=== PATIENT | female | born 1970 | race Caucasian/White ===

== ENCOUNTER 2016-06-30 17:17 | Emergency (ER) | payer BC ==
[~2016-06-30] VITALS: Ht 165.1 cm; Wt 109.4 kg
[~2016-06-30 17:17] MED LIST: B-COTAB53; LISI-787 PO; METR0.754; MULT-506 PO; NAPR220T PO; NPR375 PO; OXYC-643 PO; TRAZ50TA35 PO
[2016-06-30 17:20] VITALS: TEMP 36.9; Ht 165.1 cm; Wt 109.4 kg
[2016-06-30] MEDS ORDERED: SODIUM CHLORIDE 0.9% 1000ML 1,000 ML IV STA (17:33)
[2016-06-30] MEDS ORDERED: ONDANSETRON INJ 2 MG/ML 2 ML VIAL IV STA (17:33)
--- NOTE | 2016-06-30 17:41 | EMERGENCY ROOM VISIT NOTE ---
History Report prepared by Demarcus: Philip Valdes Under the Supervision of: Dr. Kenny Santana D.O. First contact with patient: 17:24 Chief Complaint: ABDOMINAL PAIN Stated Complaint: UPPER ABDOMINAL PAIN,SHOULDER PAIN History of Present Illness The patient is a 46 year old female who presents to the Emergency Room with complaints of intermittent abdominal pain beginning around 2 years ago. She notes she gets episodes of sharp abdominal pain with nausea, but without diarrhea or vomiting, though she notes she feels she could vomit. The intermittent pain has been worse of the past week. She locates her pain in her upper abdomen, and indicates that it sometimes radiates to her back and chest. The patient denies worsening of her pain with lying flat, and occasionally has shortness of breath with her symptoms. Today she felt hot, but is unsure if she had a fever. The patient sometimes takes acetaminophen to manage her symptoms, and took an Excedrin earlier today for migraine pain. She last ate 4 hours ago and had ham. The patient reports she still has her gallbladder, but notes that members of her family have had gallbladder issues. She notes having a hysterectomy, and a history of hypertension for which she takes Lisinopril, and a history of reflux for which she does not take regular medicine. 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 Source of History: patient Onset: 2 years ago Position: abdomen (upper) Quality: sharp Timing: intermittent Associated Symptoms: + SOB, + nausea, No diarrhea, No vomiting Review of Systems See HPI for pertinent positives & negatives. A total of 10 systems reviewed and were otherwise negative. Past Medical & Surgical Medical Problems: (1) History of gastroesophageal reflux (GERD) (2) History of hypertension Surgical Problems: (1) History of hysterectomy Family History Gallbladder disease Social History Smoking Status: Never Smoker Marital Status: Housing Status: lives with family Current/Historical Medications Scheduled B-Complex W/ Folic Acid (B Complex), 1 TAB BID Lisinopril/Hctz (Zestoretic 20MG/12.5MG), 1 TAB PO QAM Multivitamin (Multivitamin), 1 TAB PO BID Pantoprazole (Protonix), 40 MG PO DAILY Ranitidine Hcl (Zantac), 150 MG PO BID Scheduled PRN Drrioxy-Xvjtnwhzzwrem-Qsuvpnqe (Excedrin Migraine), 2 TAB PO UD PRN for Migraine Cyclobenzaprine Hcl (Flexeril), 10 MG PO TID PRN for spasm Naproxen Sodium (Aleve), 220 MG PO PRN PRN for Pain Trazodone Hcl (Trazodone), 50 MG PO HS PRN for Sleep Allergies Coded Allergies: Ibuprofen (Verified Adverse Reaction, Mild, NAUSEA AND VOMITING, 04/21/09) Physical Exam Vital Signs Date Time Temp Pulse Resp B/P Pulse Ox O2 Delivery O2 Flow Rate FiO2 06/30/16 22:16 70 16 130/89 96 06/30/16 21:03 65 16 128/85 97 Room Air 06/30/16 19:21 67 16 132/92 96 Room Air 06/30/16 17:55 63 06/30/16 17:20 36.9 93 18 158/104 97 Room Air Physical Exam GENERAL: Patient is awake alert, somewhat anxious and uncomfortable. EYES: The conjunctivae are clear. The pupils are round and reactive. EARS, NOSE, MOUTH AND THROAT: The nose is without any evidence of any deformity. Mucous membranes are moist tongue is midline NECK: The neck is nontender and supple. RESPIRATORY: Normal respiratory effort is noted there is no evidence of wheezing rhonchi or rales CARDIOVASCULAR: Regular rate and rhythm noted there no murmurs rubs or gallops normal S1 normal S2 GASTROINTESTINAL: The abdomen is mildly distended but soft. Significant epigastric and right upper quadrant tenderness noted to palpation. Positive Abbott's sign noted. BACK: No midline tenderness or or step-off noted range of motion in flexion extension as well as rotation no signs of muscle spasm noted MUSCULOSKELETAL/EXTREMITIES: There is no evidence of gross deformity full range of motion is noted in the hips and shoulders SKIN: There is no obvious evidence of any rash. There are no petechiae, pallor or cyanosis noted. NEUROLOGIC: Patient is awake alert and oriented x3 Medical Decision & Procedures ER Provider Diagnostic Interpretation: Radiology results as stated below per my review and radiologist interpretation: SINGLE VIEW CHEST FINDINGS: A frontal chest radiograph is obtained. No prior studies are available for comparison at the time of dictation. The cardiomediastinal silhouette is unremarkable. The lungs and pleural spaces are clear. No pneumothorax is seen. The bony thorax is grossly intact. IMPRESSION: No active disease in the chest. Electronically signed by: Juan Webb M.D. 06/30/2016 7:34 PM Dictated Date/Time: 06/30/2016 7:33 PM KUB FINDINGS: 2 AP supine abdominal radiographs are correlated with abdominal ultrasound performed the same day 06/30/2016. There is a nonobstructed abdominal bowel gas pattern noting moderate colonic fecal retention. There is no evidence of intraperitoneal free air on these supine views. No abnormal abdominal calcifications are identified. The bony structures appear intact. The lung bases are clear as imaged. IMPRESSION: Moderate constipation. Electronically signed by: Juan Webb M.D. 06/30/2016 7:33 PM Dictated Date/Time: 06/30/2016 7:[address] SCAN OF THE ABDOMEN AND PELVIS WITH IV CONTRAST FINDINGS: Lung bases: The heart is normal in size and without pericardial effusion. The lung bases are clear. Liver: The contrast-enhanced liver is normal in size, contour, and attenuation. There is no intrahepatic biliary ductal dilatation. The hepatic veins and portal veins are patent. Gallbladder: Unremarkable. Spleen: Normal in size and attenuation. Pancreas: Unremarkable. Adrenal glands: Unremarkable. Kidneys: The contrast enhanced kidneys are normal in size and without hydronephrosis. The kidneys enhance symmetrically. Abdominal vasculature: The abdominal aorta is normal in course and caliber. Bowel: The small bowel and colon are normal in course and caliber. Colonic fecal retention is observed. The appendix is well-visualized and normal. Peritoneum: There is no intraperitoneal free air or abdominal ascites. There is a small fat-containing umbilical hernia. Lymphadenopathy: None. Pelvic viscera: The bladder is normal as visualized. The uterus is surgically absent. No adnexal lesion is seen. Small ovarian follicles are observed . There is trace free fluid in the cul-de-sac. Skeletal structures: No lytic or blastic lesions are seen. Small bone islands are incidentally noted in the pelvis. IMPRESSION: 1. There are no acute infectious or inflammatory findings in the abdomen or pelvis. 2. There is trace and likely physiologic free fluid in the cul-de-sac. Electronically signed by: Juan Webb M.D. 06/30/2016 8:53 PM Dictated Date/Time: 06/30/2016 8:45 PM ULTRASOUND RIGHT UPPER QUADRANT ABDOMEN FINDINGS: Liver: The liver is normal in size and echotexture. There is no intrahepatic biliary ductal dilatation. The main portal vein is patent. Gallbladder: The gallbladder is normal in appearance. No gallstones are identified. There is no gallbladder wall thickening or pericholecystic fluid. A sonographic Abbott's sign is reportedly absent. The common bile duct measures up to 0.5 cm in diameter. Pancreas: Visualized portions of the pancreatic head and body are normal in appearance. The splenic vein is patent. Right kidney: Survey images of the right kidney demonstrate normal size and echotexture. There is no hydronephrosis. Ascites: None. IMPRESSION: Unremarkable sonographic assessment of the right upper quadrant. No gallstones are identified. Electronically signed by: Juan Webb M.D. 06/30/2016 7:13 PM Dictated Date/Time: 06/30/2016 7:13 PM Laboratory Results 06/30/16 17:50 Red Blood Count 4.14, Mean Corpuscular Volume 91.3, Mean Corpuscular Hemoglobin 32.4, Mean Corpuscular Hemoglobin Concent 35.4, Mean Platelet Volume 10.6, Neutrophils (%) (Auto) 49.6, Lymphocytes (%) (Auto) 42.0, Monocytes (%) (Auto) 6.2, Eosinophils (%) (Auto) 1.3, Basophils (%) (Auto) 0.7, Neutrophils # (Auto) 2.94, Lymphocytes # (Auto) 2.49, Monocytes # (Auto) 0.37, Eosinophils # (Auto) 0.08, Basophils # (Auto) 0.04 06/30/16 17:50 Test 06/30/16 17:50 06/30/16 18:50 White Blood Count 5.93 K/uL (4.8-10.8) Red Blood Count 4.14 M/uL (4.2-5.4) Hemoglobin 13.4 g/dL (12.0-16.0) Hematocrit 37.8 % (37-47) Mean Corpuscular Volume 91.3 fL (80-100) Mean Corpuscular Hemoglobin 32.4 pg (25-34) Mean Corpuscular Hemoglobin Concent 35.4 g/dl (32-36) Platelet Count 262 K/uL (130-400) Mean Platelet Volume 10.6 fL (7.4-10.4) Neutrophils (%) (Auto) 49.6 % Lymphocytes (%) (Auto) 42.0 % Monocytes (%) (Auto) 6.2 % Eosinophils (%) (Auto) 1.3 % Basophils (%) (Auto) 0.7 % Neutrophils # (Auto) 2.94 K/uL (1.4-6.5) Lymphocytes # (Auto) 2.49 K/uL (1.2-3.4) Monocytes # (Auto) 0.37 K/uL (0.11-0.59) Eosinophils # (Auto) 0.08 K/uL (0-0.5) Basophils # (Auto) 0.04 K/uL (0-0.2) RDW Standard Deviation 42.1 fL (36.4-46.3) RDW Coefficient of Variation 12.5 % (11.5-14.5) Immature Granulocyte % (Auto) 0.2 % Immature Granulocyte # (Auto) 0.01 K/uL (0.00-0.02) Prothrombin Time 10.2 SECONDS (9.0-12.0) Prothromb Time International Ratio 1.0 (0.9-1.1) Activated Partial Thromboplast Time 26.7 SECONDS (21.0-31.0) Partial Thromboplastin Ratio 1.0 Anion Gap 8.0 mmol/L (3-11) Est Creatinine Clear Calc Drug Dose 93.0 ml/min Estimated GFR () 84.9 Estimated GFR (Non- 73.3 BUN/Creatinine Ratio 12.6 (10-20) Calcium Level 8.4 mg/dl (8.5-10.1) Total Bilirubin 0.5 mg/dl (0.2-1) Direct Bilirubin 0.1 mg/dl (0-0.2) Aspartate Amino Transf (AST/SGOT) 16 U/L (15-37) Alanine Aminotransferase (ALT/SGPT) 23 U/L (12-78) Alkaline Phosphatase 82 U/L (45-117) Troponin I < 0.015 ng/ml (0-0.045) Total Protein 7.6 gm/dl (6.4-8.2) Albumin 3.6 gm/dl (3.4-5.0) Lipase 233 U/L (73-393) Urine Color YELLOW Urine Appearance CLEAR (CLEAR) Urine pH 8.0 (4.5-7.5) Urine Specific [place] 1.009 (1.000-1.030) Urine Protein NEG (NEG) Urine Glucose (UA) NEG (NEG) Urine Ketones NEG (NEG) Urine Occult Blood NEG (NEG) Urine Nitrite NEG (NEG) Urine Bilirubin NEG (NEG) Urine Urobilinogen NEG (NEG) Urine Leukocyte Esterase NEG (NEG) Laboratory results per my review. Medications Administered Medications (Trade) Dose Ordered Sig/Kenny Route Start Time Stop Time Status Last Admin Dose Admin Sodium Chloride (Nss 1000ml) 1,000 ml @ 999 mls/hr Q1H1M STAT IV 06/30/16 17:33 06/30/16 18:33 DC 06/30/16 17:54 999 MLS/HR Ondansetron HCl (Zofran Inj) 4 mg NOW STAT IV 06/30/16 17:33 06/30/16 17:34 DC 06/30/16 17:54 4 MG Morphine Sulfate 4 mg 4 mg Q15M PRN IV 06/30/16 17:45 06/30/16 22:43 DC 06/30/16 17:54 4 MG Pantoprazole Sodium/Syringe (Protonix Inj/ Syringe) 10 ml @ 5 mls/min NOW ONCE IV 06/30/16 17:45 06/30/16 17:46 DC 06/30/16 19:20 5 MLS/MIN Al Hydroxide/Mg Hydroxide (Maalox Susp) 30 ml NOW STAT PO 06/30/16 21:02 06/30/16 21:03 DC 06/30/16 21:18 30 ML Oxycodone HCl (Roxicodone Immediate Rel 5MG Home Pack) 1 homepack UD ONCE PO 06/30/16 22:00 06/30/16 22:01 DC 06/30/16 22:09 1 HOMEPACK ECG Indication: abdominal pain Rate (beats per minute): 61 Rhythm: normal sinus Findings: no ectopy, other (No acute ST segment abnormalities) Comparison ECG Date: 06/20/12 Change: no significant change ED Course 1729: The patient was evaluated in room A4B. A complete history and physical examination were performed. 1733: Ordered Zofran Inj 4 mg IV, and NSS 1,000 ml @ 999 mls/hr UV. 1745: Ordered Pantoprazole Sodium 40 mg/Syringe 10 ml @ 5 mls/min IV, and Morphine Sulfate 4 mg IV. 2: Ordered Maalox Susp 30 ml PO. 0: Ordered Oxycodone HCl 1 homepack PO. 2210: Upon reevaluation, the patient is doing well. I discussed the results and treatment plan with the patient. She verbalized agreement of the treatment plan. The patient was discharged home. Medical Decision Differential diagnosis: Etiologies such as appendicitis, diverticulitis, PUD, biliary pathology, UTI, pancreatitis, obstruction, mesenteric ischemia, aortic pathology, infections, inflammatory bowel disease, renal colic, as well as others were entertained. Nursing notes reviewed. The patient is a 46-year-old female who presented to the emergency department for an evaluation of upper abdominal pain. The patient had reproducible right upper quadrant and epigastric pain. The patient was concerned she may have a gallbladder problem. She states she has a strong history of gallbladder issues with her family. She was treated with IV fluids IV pain medicine and IV antiemetics. On subsequent reevaluation she was feeling much better. She was also given a proton pump however. The patient's ultrasound did not show signs of cholecystitis. The patient had very severe pain on reevaluation so CT abdomen and pelvis was obtained to evaluate for other intra-abdominal pathology. The patient was encouraged to rest and avoid any strenuous activity. She was encouraged to avoid any fatty or spicy or fried foods. She was also encouraged to follow-up with her doctor this week for reevaluation or return to the emergency Department immediately if symptoms change worsen or the need arises. Impression Primary Impression: Epigastric abdominal pain Additional Impression: Gastritis Scribe Attestation The scribe's documentation has been prepared under my direction and personally reviewed by me in its entirety. I confirm that the note above accurately reflects all work, treatment, procedures, and medical decision making performed by me. Departure Information Dispostion Home / Self-Care Prescriptions Ranitidine Hcl (ZANTAC) 150 Mg Tab 150 MG PO BID, #60 TAB Prov: Kenny Santana, DO 06/30/16 Pantoprazole (Protonix) 40 Mg Tab 40 MG PO DAILY, #30 TAB Prov: Kenny Santana, DO 06/30/16 Patient Instructions ED Abd Pain Unkn Cause Fem, ED PUD Vs Gastritis, My [facility] Additional Instructions Call your family in the morning to schedule a follow-up appointment. You may require further studies or possibly a referral to a staffing account manager to further evaluate the cause of your abdominal pain. Continue using Maalox or Mylanta as directed for symptomatically. Continue all other medications as prescribed. Avoid any NSAIDs. Continue using Tylenol as directed for mild pain. Return to emergency department immediately if symptoms change worsen or the need arises. Problem Qualifiers Additional Impression: Gastritis Gastritis type: unspecified gastritis Chronicity: unspecified Gastritis bleeding: without bleeding Qualified Codes: K29.70 - Gastritis, unspecified, without bleeding
[2016-06-30] MEDS ORDERED: PANTOprazole INJ 40 MG in SYRINGE 0 ML IV ONE (17:45)
[2016-06-30] MEDS ORDERED: MoRPHine SULFATE 4 MG/ML 1 ML CARP\\VIAL IV PRN (17:45)
[2016-06-30 18:10] LABS: BASO % 0.7 %; BASO ABS # 0.04 K/uL (0-0.2); COMPLETE YES; EOS % 1.3 %; HEMATOCRIT 37.8 % (37-47); IG% 0.2 %; LYMPH ABS # 2.49 K/uL (1.2-3.4); MEAN CELL VOLUME 91.3 fL (80-100); MEAN CORPUSCULAR HEMOGLOBIN 32.4 pg (25-34); MEAN CORPUSCULAR HGB CONC 35.4 g/dl (32-36); MEAN PLATELET VOLUME 10.6 fL (7.4-10.4); MONO % 6.2 %; NEUT % 49.6 %; PLATELET COUNT 262 K/uL (130-400); RED BLOOD COUNT 4.14 M/uL (4.2-5.4); WHITE BLOOD COUNT 5.93 K/uL (4.8-10.8)
[2016-06-30 18:17] LABS: PROTHROMBIN TIME (PATIENT) 10.2 SECONDS (9.0-12.0)
[2016-06-30 18:27] LABS: ALT/SGPT 23 U/L (12-78); AST/SGOT 16 U/L (15-37); BLOOD UREA NITROGEN 12 mg/dl (7-18); BUN/CREATININE RATIO 12.6 (10-20); CALCIUM 8.4 mg/dl (8.5-10.1); CARBON DIOXIDE 29 mmol/L (21-32); CHLORIDE 105 mmol/L (98-107); CREATININE 0.94 mg/dl (0.60-1.20); GLUCOSE 106 mg/dl (70-99); POTASSIUM 3.4 mmol/L (3.5-5.1); SODIUM 142 mmol/L (136-145)
[2016-06-30 18:32] LABS: ALKALINE PHOSPHATASE 82 U/L (45-117)
[2016-06-30] MEDS ORDERED: CYCL10TA6 PO (18:35)
[2016-06-30] MEDS ORDERED: ASPI-390 PO (18:35)
[2016-06-30 19:14] LABS: URINE APPEARANCE CLEAR (CLEAR); URINE BILIRUBIN NEG (NEG); URINE COLOR YELLOW; URINE NITRITE NEG (NEG); URINE SPECIFIC GRAVITY 1.009 (1.000-1.030); UROBILINOGEN NEG (NEG)
[2016-06-30 19:15] LABS: MANUAL MICROSCOPIC REQUIRED? NO; REVIEW REQ? NO
--- NOTE | 2016-06-30 19:15 | DIAGNOSTIC IMAGING REPORT ---
ULTRASOUND RIGHT UPPER QUADRANT ABDOMEN CLINICAL HISTORY: Right upper quadrant abdominal pain. COMPARISON STUDY: No priors. TECHNIQUE: Real-time, grayscale, and color flow sonography of the right upper quadrant of the abdomen was performed. Images are reviewed in the transverse and longitudinal planes. FINDINGS: Liver: The liver is normal in size and echotexture. There is no intrahepatic biliary ductal dilatation. The main portal vein is patent. Gallbladder: The gallbladder is normal in appearance. No gallstones are identified. There is no gallbladder wall thickening or pericholecystic fluid. A sonographic Abbott's sign is reportedly absent. The common bile duct measures up to 0.5 cm in diameter. Pancreas: Visualized portions of the pancreatic head and body are normal in appearance. The splenic vein is patent. Right kidney: Survey images of the right kidney demonstrate normal size and echotexture. There is no hydronephrosis. Ascites: None. IMPRESSION: Unremarkable sonographic assessment of the right upper quadrant. No gallstones are identified. Electronically signed by: Juan Webb M.D. 06/30/2016 7:13 PM Dictated Date/Time: 06/30/2016 7:13 PM
--- NOTE | 2016-06-30 19:35 | DIAGNOSTIC IMAGING REPORT ---
KUB CLINICAL HISTORY: Generalized abdominal pain. FINDINGS: 2 AP supine abdominal radiographs are correlated with abdominal ultrasound performed the same day 06/30/2016. There is a nonobstructed abdominal bowel gas pattern noting moderate colonic fecal retention. There is no evidence of intraperitoneal free air on these supine views. No abnormal abdominal calcifications are identified. The bony structures appear intact. The lung bases are clear as imaged. IMPRESSION: Moderate constipation. Electronically signed by: Juan Webb M.D. 06/30/2016 7:33 PM Dictated Date/Time: 06/30/2016 7:32 PM
--- NOTE | 2016-06-30 19:36 | DIAGNOSTIC IMAGING REPORT ---
SINGLE VIEW CHEST CLINICAL HISTORY: Generalized abdominal pain. FINDINGS: A frontal chest radiograph is obtained. No prior studies are available for comparison at the time of dictation. The cardiomediastinal silhouette is unremarkable. The lungs and pleural spaces are clear. No pneumothorax is seen. The bony thorax is grossly intact. IMPRESSION: No active disease in the chest. Electronically signed by: Juan Webb M.D. 06/30/2016 7:34 PM Dictated Date/Time: 06/30/2016 7:33 PM
[2016-06-30] MEDS ORDERED: OPTIRAY 320 IV PRN (20:45)
--- NOTE | 2016-06-30 20:55 | DIAGNOSTIC IMAGING REPORT ---
CT SCAN OF THE ABDOMEN AND PELVIS WITH IV CONTRAST CLINICAL HISTORY: Right upper quadrant abdominal pain. COMPARISON STUDY: KUB dated 06/30/2016. TECHNIQUE: Following the IV administration of 115 cc of Optiray 320, CT scan of the abdomen and pelvis is performed from the lung bases to the proximal femora. Images are reviewed in the axial, sagittal, and coronal planes. IV contrast was administered without complication. Automated dose control exposure was utilized. CT DOSE: 1110.23 mGy.cm FINDINGS: Lung bases: The heart is normal in size and without pericardial effusion. The lung bases are clear. Liver: The contrast-enhanced liver is normal in size, contour, and attenuation. There is no intrahepatic biliary ductal dilatation. The hepatic veins and portal veins are patent. Gallbladder: Unremarkable. Spleen: Normal in size and attenuation. Pancreas: Unremarkable. Adrenal glands: Unremarkable. Kidneys: The contrast enhanced kidneys are normal in size and without hydronephrosis. The kidneys enhance symmetrically. Abdominal vasculature: The abdominal aorta is normal in course and caliber. Bowel: The small bowel and colon are normal in course and caliber. Colonic fecal retention is observed. The appendix is well-visualized and normal. Peritoneum: There is no intraperitoneal free air or abdominal ascites. There is a small fat-containing umbilical hernia. Lymphadenopathy: None. Pelvic viscera: The bladder is normal as visualized. The uterus is surgically absent. No adnexal lesion is seen. Small ovarian follicles are observed . There is trace free fluid in the cul-de-sac. Skeletal structures: No lytic or blastic lesions are seen. Small bone islands are incidentally noted in the pelvis. IMPRESSION: 1. There are no acute infectious or inflammatory findings in the abdomen or pelvis. 2. There is trace and likely physiologic free fluid in the cul-de-sac. Electronically signed by: Juan Webb M.D. 06/30/2016 8:53 PM Dictated Date/Time: 06/30/2016 8:45 PM
[2016-06-30] MEDS ORDERED: ALUMINUM/MAGNESIUM SUSP 30 ML UDC PO STA (21:02)
[2016-06-30] MEDS ORDERED: PANT40TA PO (21:55)
[2016-06-30] MEDS ORDERED: RANI150T3 PO (21:55)
[2016-06-30] MEDS ORDERED: OXYCODONE IR HOME PACK PO ONE (22:00)
[2016-06-30 22:16] VITALS: BP 130/89; PULSE 70; O2SAT 96
== END 2016-06-30 22:18 | disposition home or self-care (01) ==
LOC: C.EDB 17:18 → C.EDA 22:18
DX: R10.13 Epigastric pain (principal); K29.70 Gastritis, unspecified, without bleeding; I10 Essential (primary) hypertension; K21.9 Gastro-esophageal reflux disease without esophagitis; Z79.899 Other long term (current) drug therapy; Z83.79 Family history of other diseases of the digestive system

== ENCOUNTER 2016-07-12 13:35 | Emergency (ER) | payer BC, OTHER ==
[~2016-07-12] VITALS: Ht 165.1 cm; Wt 108.0 kg
[~2016-07-12 13:35] MED LIST changes: +ASPI-390 PO; +CYCL10TA6 PO; -METR0.754; -NPR375 PO; -OXYC-643 PO; +PANT40TA PO; +RANI150T3 PO
[2016-07-12 13:43] VITALS: TEMP 36.5; Ht 165.1 cm; Wt 108.0 kg
[2016-07-12] MEDS ORDERED: ACETAMINOPHEN 325 MG TAB PO STA (14:17)
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
[2016-07-12] MEDS ORDERED: ONDANSETRON 4MG OD TAB PO ONE (16:15)
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
[2016-07-12 17:15] VITALS: BP 142/99; PULSE 104; O2SAT 97
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
== END 2016-07-12 17:17 | disposition home or self-care (01) ==
LOC: C.EDB 13:38 → C.EDD 17:17
DX: R51 Headache (principal); M54.2 Cervicalgia; R10.9 Unspecified abdominal pain; R07.81 Pleurodynia; M25.511 Pain in right shoulder; V43.62XA Car passenger injured in collision with other type car in traffic accident, initial encounter; I10 Essential (primary) hypertension; J45.909 Unspecified asthma, uncomplicated; K21.9 Gastro-esophageal reflux disease without esophagitis; Z90.710 Acquired absence of both cervix and uterus; Z79.899 Other long term (current) drug therapy

== ENCOUNTER 2016-07-13 20:24 | Emergency (ER) | payer BC, OTHER ==
[~2016-07-13] VITALS: Ht 165.1 cm; Wt 109.0 kg
[~2016-07-13 20:24] MED LIST changes: -B-COTAB53; -MULT-506 PO
[2016-07-13 20:32] VITALS: TEMP 36.7; Ht 165.1 cm; Wt 109.0 kg
[2016-07-13] MEDS ORDERED: ONDANSETRON INJ 2 MG/ML 2 ML VIAL IV STA (21:49)
[2016-07-13] MEDS ORDERED: DEXAMETHASONE SOD INJ 10 MG/ML VIAL IV ONE (22:00)
[2016-07-13] MEDS ORDERED: SODIUM CHLORIDE 0.9% 1000ML 1,000 ML IV ONE (22:00)
[2016-07-13] MEDS ORDERED: MoRPHine SULFATE 4 MG/ML 1 ML CARP\\VIAL IV ONE (22:00)
[2016-07-13] MEDS ORDERED: LORAZEPAM 2 MG/ML 1 ML VIAL IV SCH (22:00)
[2016-07-13 22:49] LABS: BASO ABS # 0.05 K/uL (0-0.2); COMPLETE YES; EOS % 1.6 %; HEMATOCRIT 38.4 % (37-47); IG% 0.2 %; LYMPH % 47.1 %; LYMPH ABS # 2.35 K/uL (1.2-3.4); MEAN CELL VOLUME 93.4 fL (80-100); MEAN CORPUSCULAR HEMOGLOBIN 31.6 pg (25-34); MEAN CORPUSCULAR HGB CONC 33.9 g/dl (32-36); MEAN PLATELET VOLUME 10.3 fL (7.4-10.4); MONO % 7.6 %; NEUT % 42.5 %; PLATELET COUNT 256 K/uL (130-400); RED BLOOD COUNT 4.11 M/uL (4.2-5.4); WHITE BLOOD COUNT 4.99 K/uL (4.8-10.8)
[2016-07-13 23:09] LABS: BUN/CREATININE RATIO 16.1 (10-20); CALCIUM 8.7 mg/dl (8.5-10.1); CREATININE 0.85 mg/dl (0.60-1.20); POTASSIUM 3.4 mmol/L (3.5-5.1)
[2016-07-13 23:12] LABS: ALB/GLOB RATIO 0.9 (0.9-2)
[2016-07-14] MEDS ORDERED: HYDR-5688 PO (02:02)
[2016-07-14] MEDS ORDERED: CYCL10TA6 PO (02:02)
[2016-07-14] MEDS ORDERED: PRED50TA PO (02:02)
[2016-07-14] MEDS ORDERED: NORCO 5/325MG HOME PACK PO ONE (02:15)
[2016-07-14 02:40] VITALS: BP 118/85; PULSE 73; O2SAT 94
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
== END 2016-07-14 02:40 | disposition home or self-care (01) ==
LOC: C.EDB 20:25
DX: M79.601 Pain in right arm (principal); M54.10 Radiculopathy, site unspecified; V43.62XD Car passenger injured in collision with other type car in traffic accident, subsequent encounter; K21.9 Gastro-esophageal reflux disease without esophagitis; I10 Essential (primary) hypertension; Z90.710 Acquired absence of both cervix and uterus; Z79.899 Other long term (current) drug therapy

== ENCOUNTER → 2017-03-20 | Outpatient (CLI) | payer OTHER ==
[~2017-03-20] MED LIST changes: +CIPR-255 PO; +CTP/1 PO; +DOXY100C76 PO; +NAPR-1264 PO; -NAPR220T PO; -PANT40TA PO; +PRT/20 PO; +SULF800T23 PO
[2017-03-21 00:01] LABS: INFLUENZA B ANTIGEN Neg for Influ B (NEG)
[2017-03-21 00:23] LABS: INFLUENZA A PCR Neg for Influ A (NEG); INFLUENZA B PCR Neg for Influ B (NEG)
== END | disposition home or self-care (01) ==
LOC: C.LAB 23:09
PROVIDERS: ATTEND Emergency Medicine
DX: R53.1 Weakness (principal)

== ENCOUNTER 2017-05-03 18:19 | Emergency (ER) | payer OTHER ==
[~2017-05-03] VITALS: Ht 165.1 cm; Wt 108.0 kg
[~2017-05-03 18:19] MED LIST changes: -CIPR-255 PO; -CTP/1 PO; -DOXY100C76 PO; -PRT/20 PO; -RANI150T3 PO; -SULF800T23 PO
[2017-05-03 18:20] VITALS: TEMP 36; Ht 165.1 cm; Wt 108.0 kg
[2017-05-03 18:41] VITALS: O2SAT 99
[2017-05-03 19:00] LABS: BASO % 0.6 %; BASO ABS # 0.03 K/uL (0-0.2); EOS % 1.3 %; EOS ABS # 0.07 K/uL (0-0.5); HEMATOCRIT 39.6 % (37-47); HEMOGLOBIN 13.8 g/dL (12.0-16.0); IG# 0.01 K/uL (0.00-0.02); LYMPH % 43.6 %; LYMPH ABS # 2.31 K/uL (1.2-3.4); MEAN CELL VOLUME 93.4 fL (80-100); MEAN CORPUSCULAR HEMOGLOBIN 32.5 pg (25-34); MEAN CORPUSCULAR HGB CONC 34.8 g/dl (32-36); MEAN PLATELET VOLUME 10.3 fL (7.4-10.4); MONO % 8.9 %; MONO ABS # 0.47 K/uL (0.11-0.59); NEUT % 45.4 %; NEUT ABS # 2.41 K/uL (1.4-6.5); PLATELET COUNT 271 K/uL (130-400); RED CELL DISTRIBUTION WIDTH CV 12.2 % (11.5-14.5); RED CELL DISTRIBUTION WIDTH SD 41.2 fL (36.4-46.3)
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
[2017-05-03 19:25] LABS: ALBUMIN 3.9 gm/dl (3.4-5.0); ALT/SGPT 25 U/L (12-78); AST/SGOT 16 U/L (15-37); BLOOD UREA NITROGEN 13 mg/dl (7-18); CARBON DIOXIDE 28 mmol/L (21-32); CREATININE 0.87 mg/dl (0.60-1.20); GLUCOSE 88 mg/dl (70-99); POTASSIUM 3.3 mmol/L (3.5-5.1); SODIUM 139 mmol/L (136-145)
[2017-05-03 19:30] LABS: ALKALINE PHOSPHATASE 81 U/L (45-117); CKMB < 0.5 ng/ml (0.5-3.6)
--- NOTE | 2017-05-03 19:42 | DIAGNOSTIC IMAGING REPORT ---
CHEST ONE VIEW PORTABLE CLINICAL HISTORY: Respiratory distress. COMPARISON STUDY: Chest radiograph July 12, 2016. FINDINGS: Lung volumes are normal. Lungs are clear. No pneumothorax or pleural effusion is noted. Cardiac size is normal. Mediastinal contours are normal. There is no evidence for pulmonary edema. IMPRESSION: No acute cardiopulmonary findings. Electronically signed by: Chaz Boyer M.D. 05/03/2017 7:40 PM Dictated Date/Time: 05/03/2017 7:40 PM
[2017-05-03] MEDS ORDERED: OPTIRAY 320 IV PRN (20:00)
--- NOTE | 2017-05-03 20:50 | DIAGNOSTIC IMAGING REPORT ---
CT OF THE HEAD WITHOUT CONTRAST CLINICAL HISTORY: Headache and dizziness. COMPARISON STUDY: Head CT July 12, 2016. CT DOSE: 537.48 mGy.cm TECHNIQUE: Helical axial images of the head were obtained without IV contrast. Automated exposure control was utilized for the study. A dose lowering technique was utilized adhering to the principles of ALARA. FINDINGS: No acute intracranial hemorrhage, midline shift or mass effect is present. Ventricular system is normal. Basilar cisterns are patent. There are no extra-axial collections. Peralta-white differentiation is maintained. There are no findings to suggest acute dural sinus thrombosis or acute territorial infarct. IMPRESSION: No acute intracranial findings. Electronically signed by: Chaz Boyer M.D. 05/03/2017 8:49 PM Dictated Date/Time: 05/03/2017 8:47 PM
--- NOTE | 2017-05-03 20:57 | DIAGNOSTIC IMAGING REPORT ---
CT ANGIOGRAPHY OF THE CHEST, PULMONARY EMBOLUS PROTOCOL CLINICAL HISTORY: Hypertension. Dizziness. Tachycardia. COMPARISON STUDY: Chest radiograph July 12, 2016. TECHNIQUE: Following IV administration of 104 mL of Optiray-320, helical axial images of the chest were obtained utilizing the pulmonary embolus protocol. Maximal intensity projections and sagittal and coronal reformats were viewed on an independent 3D workstation. IV contrast was administered without complication. A dose lowering technique was utilized adhering to the principles of ALARA. CT DOSE: 476.06 mGy.cm FINDINGS: No pulmonary emboli are identified. There is no evidence of thoracic aortic dissection. The size of the heart is normal. There is no pericardial effusion. No enlarged thoracic lymph nodes are present. There is no consolidation. No pneumothorax or pleural effusion is noted. Note is made of an asymmetric density within the upper outer quadrant of the right breast measures 5.2 x 3.3 cm. Upper abdomen is unremarkable. The gallbladder surgically absent. IMPRESSION: 1. No pulmonary emboli identified. 2. No acute intrathoracic findings. 3. 5.2 x 3.3 cm asymmetric density within the upper outer quadrant of the right breast. This likely reflects asymmetric breast tissue however follow-up mammogram and ultrasound is recommended to exclude a mass. Electronically signed by: Chaz Boyer M.D. 05/03/2017 8:55 PM Dictated Date/Time: 05/03/2017 8:49 PM
[2017-05-03] MEDS ORDERED: RANI150T3 PO (21:04)
[2017-05-03] MEDS ORDERED: PRT/20 PO (21:04)
[2017-05-03] MEDS ORDERED: DOXY100C76 PO (21:04)
[2017-05-03] MEDS ORDERED: CLONIDINE HCL 0.1 MG TAB PO ONE (21:45)
[2017-05-03] MEDS ORDERED: LIDOCAINE HCL 2% JELLY 30 ML TUBE EXT STA (21:55)
[2017-05-03] MEDS ORDERED: CIPROFLOXACIN 500 MG TAB PO STA (21:55)
[2017-05-03] MEDS ORDERED: SULFAMETHOXAZOLE/TRIMETHOPRIM DS 800/160MG TAB PO ONE (22:00)
[2017-05-03] MEDS ORDERED: CTP/1 PO (22:04)
[2017-05-03] MEDS ORDERED: CIPR-255 PO (22:06)
[2017-05-03] MEDS ORDERED: SULF800T23 PO (22:06)
[2017-05-03 22:48] VITALS: BP 136/91; PULSE 86; O2SAT 96
--- NOTE | 2017-05-04 22:17 | EMERGENCY ROOM VISIT NOTE ---
ED Visit Note I was asked to examine the patient's genitals as she was complaining of painful lesions in the genital area for the last several weeks. She denied any vaginal discharge. On exam, she had several, small, circular, erythematous, slightly raised lesions around the hair follicles in the genital region. There were no signs of abscess such as induration or fluctuance. They were slightly tender to touch. No lesions in the introitus. Her physical exam is consistent with folliculitis. The patient does have a hot tub. There is concern for hot tub folliculitis. 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 I also wonder cover for MRSA. The patient was given a prescription for Bactrim and Cipro. She was also given a prescription for lidocaine jelly to apply for pain. She will perform sitz baths. She was encouraged to follow-up with a primer powder blender wet if there is no improvement in the next several days. She voiced understanding, was discharged in good condition
[2017-05-06 17:01] LABS: ANA SCREEN TC 249X NEGATIVE (NEGATIVE); ANTI-dsDNA RECOMBINANT 255X 1 IU/ML
== END 2017-05-03 22:50 | disposition home or self-care (01) ==
LOC: C.EDB 18:20 → C.EDC 22:50
DX: I10 Essential (primary) hypertension (principal); R42 Dizziness and giddiness; R00.0 Tachycardia, unspecified; K06.8 Other specified disorders of gingiva and edentulous alveolar ridge; Z88.6 Allergy status to analgesic agent; Z84.1 Family history of disorders of kidney and ureter; Z83.3 Family history of diabetes mellitus; Z82.49 Family history of ischemic heart disease and other diseases of the circulatory system; Z83.79 Family history of other diseases of the digestive system

== ENCOUNTER → 2017-05-03 | Outpatient (CLI) | payer OTHER ==
[~2017-05-03] MED LIST changes: -NAPR-1264 PO; +NAPR220T PO
[2017-05-03 12:43] LABS: ALBUMIN 3.8 gm/dl (3.4-5.0); ALT/SGPT 25 U/L (12-78); AST/SGOT 14 U/L (15-37); BLOOD UREA NITROGEN 11 mg/dl (7-18); CARBON DIOXIDE 28 mmol/L (21-32); CREATININE 0.83 mg/dl (0.60-1.20); GLUCOSE 93 mg/dl (70-99); POTASSIUM 3.7 mmol/L (3.5-5.1); SODIUM 138 mmol/L (136-145)
[2017-05-03 12:46] LABS: ALKALINE PHOSPHATASE 86 U/L (45-117); CHOLESTEROL 185 mg/dl (0-200); LDL CHOLESTEROL CALCULATED 95 mg/dl; TOTAL PROTEIN 8.2 gm/dl (6.4-8.2)
== END | disposition home or self-care (01) ==
LOC: C.LAB 11:57
PROVIDERS: ATTEND Physician Assistant
DX: Z00.00 Encounter for general adult medical examination without abnormal findings (principal); I10 Essential (primary) hypertension

== ENCOUNTER 2017-05-04 17:32 | Emergency (ER) | payer OTHER ==
[~2017-05-04] VITALS: Ht 165.1 cm; Wt 107.0 kg
[~2017-05-04 17:32] MED LIST changes: +CIPR-255 PO; +CTP/1 PO; -CYCL10TA6 PO; +DOXY100C76 PO; +PRT/20 PO; +RANI150T3 PO; +SULF800T23 PO
[2017-05-04 17:35] VITALS: TEMP 37; Ht 165.1 cm; Wt 107.0 kg
[2017-05-04] MEDS ORDERED: SODIUM CHLORIDE 0.9% 500ML 500 ML IV STA (18:02)
[2017-05-04] MEDS ORDERED: LORAZEPAM 2 MG/ML 1 ML VIAL IV STA (18:02)
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
[2017-05-04 18:30] VITALS: O2SAT 96
[2017-05-04 18:49] LABS: BASO % 0.6 %; BASO ABS # 0.03 K/uL (0-0.2); EOS % 1.3 %; EOS ABS # 0.06 K/uL (0-0.5); HEMATOCRIT 39.7 % (37-47); HEMOGLOBIN 13.6 g/dL (12.0-16.0); LYMPH % 40.1 %; LYMPH ABS # 1.86 K/uL (1.2-3.4); MEAN CELL VOLUME 92.8 fL (80-100); MEAN CORPUSCULAR HEMOGLOBIN 31.8 pg (25-34); MEAN CORPUSCULAR HGB CONC 34.3 g/dl (32-36); MEAN PLATELET VOLUME 10.6 fL (7.4-10.4); MONO % 6.9 %; MONO ABS # 0.32 K/uL (0.11-0.59); NEUT % 51.1 %; NEUT ABS # 2.37 K/uL (1.4-6.5); PLATELET COUNT 255 K/uL (130-400); RED CELL DISTRIBUTION WIDTH CV 12.3 % (11.5-14.5); RED CELL DISTRIBUTION WIDTH SD 41.7 fL (36.4-46.3); WHITE BLOOD COUNT 4.64 K/uL (4.8-10.8)
[2017-05-04 19:02] LABS: PTT PATIENT 25.8 SECONDS (21.0-31.0)
[2017-05-04 19:14] LABS: ALBUMIN 3.6 gm/dl (3.4-5.0); ALT/SGPT 22 U/L (12-78); BLOOD UREA NITROGEN 12 mg/dl (7-18); CALCIUM 8.9 mg/dl (8.5-10.1); CARBON DIOXIDE 28 mmol/L (21-32); CREATININE 0.99 mg/dl (0.60-1.20); GLUCOSE 83 mg/dl (70-99); LIPASE 149 U/L (73-393); POTASSIUM 3.4 mmol/L (3.5-5.1); SODIUM 139 mmol/L (136-145)
[2017-05-04 19:19] LABS: ALKALINE PHOSPHATASE 73 U/L (45-117); AST/SGOT 15 U/L (15-37); CKMB < 0.5 ng/ml (0.5-3.6); TOTAL PROTEIN 7.5 gm/dl (6.4-8.2)
[2017-05-04] MEDS ORDERED: GADAVIST IV PRN (19:40)
--- NOTE | 2017-05-04 20:39 | DIAGNOSTIC IMAGING REPORT ---
Brain MRI WITH AND WITHOUT CONTRAST HISTORY: Dizziness. Headache and neck pain. TECHNIQUE: Multiplanar multisequence MRI of the brain was performed both before and after the intravenous administration of contrast. COMPARISON STUDY: Head CT 05/03/2017. Outside hospital brain MRI 10/25/2016. FINDINGS: There are no areas of restricted diffusion to suggest acute infarction. The midline structures are intact. A small retention cyst within the left maxillary sinus, unchanged. A few scattered punctate foci of T2 hyperintensity within the periventricular and subcortical white matter of the supratentorial brain. These are also unchanged. These are nonspecific but favor minimal microvascular ischemic change given the stability. The mastoid air cells are clear. The ventricles and sulci are within normal limits for age. There is no mass, hematoma, midline shift. The major vascular flow-voids at the skull base are well maintained. Postcontrast sequences show no areas of abnormal enhancement. IMPRESSION: No significant change compared to the prior study. No acute intracranial abnormality. A few punctate nonspecific foci of T2 hyperintensity within the white matter remains stable. Therefore, these favor minimal microvascular ischemic change. Electronically signed by: Luis A Hamilton M.D. 05/04/2017 8:38 PM Dictated Date/Time: 05/04/2017 8:29 PM
--- NOTE | 2017-05-04 20:42 | DIAGNOSTIC IMAGING REPORT ---
Brain MRA HISTORY: Dizziness. Headache. TECHNIQUE: 3-D [id number]-[id number] MRA of the brain was performed without contrast. COMPARISON STUDY: None. FINDINGS: Visualized intracranial internal carotid arteries, distal vertebral arteries, and basilar artery are widely patent. There is no significant stenosis, occlusion, or aneurysm seen within the bilateral ACAs, MCAs, or metal lather. IMPRESSION: No significant stenosis, occlusion, or aneurysm within the [place] of [place]. Electronically signed by: Luis A Hamilton M.D. 05/04/2017 8:40 PM Dictated Date/Time: 05/04/2017 8:38 PM
--- NOTE | 2017-05-04 20:45 | DIAGNOSTIC IMAGING REPORT ---
NECK MRA HISTORY: Head and neck pain. TECHNIQUE: Lpgz-wu-ugtxpf and gadolinium-enhanced MRA of the neck was performed both before and after the intravenous administration of contrast. All measurements were calculated based on NASCET criteria. COMPARISON STUDY: None. FINDINGS: The aortic arch and proximal great vessels are widely patent. There is no significant stenosis, occlusion, or dissection identified within the bilateral common carotid, internal carotid, or vertebral arteries. IMPRESSION: No significant stenosis, occlusion, or dissection identified within the carotid or vertebral arteries. Electronically signed by: Luis A Hamilton M.D. 05/04/2017 8:44 PM Dictated Date/Time: 05/04/2017 8:41 PM
[2017-05-04 22:16] LABS: INFLUENZA B ANTIGEN Neg for Influ B (NEG)
[2017-05-04] MEDS ORDERED: MECLIZINE HCL 25MG HOME PACK PO ONE (23:00)
[2017-05-04 23:34] VITALS: BP 113/69; PULSE 62; O2SAT 98
== END 2017-05-04 23:34 | disposition home or self-care (01) ==
LOC: C.EDB 17:34 → C.EDC 23:34
DX: R42 Dizziness and giddiness (principal); R51 Headache; I10 Essential (primary) hypertension; M54.2 Cervicalgia; Z90.710 Acquired absence of both cervix and uterus; K21.9 Gastro-esophageal reflux disease without esophagitis; Z83.3 Family history of diabetes mellitus; Z84.1 Family history of disorders of kidney and ureter; Z88.6 Allergy status to analgesic agent

== ENCOUNTER → 2017-05-12 | Outpatient (CLI) | payer OTHER ==
[~2017-05-12] MED LIST changes: -SULF800T23 PO
--- NOTE | 2017-05-13 07:58 | MAMMOGRAPHY REPORT ---
BILATERAL DIGITAL DIAGNOSTIC MAMMOGRAM TOMOSYNTHESIS WITH CAD AND TARGETED BILATERAL ULTRASOUND: 05/12 CLINICAL HISTORY: 47-year-old woman presents for further workup after a recent chest CT incidentally noted a 5.2 x 3.3 cm asymmetric density in the right upper outer quadrant. Patient also due for margaret al bilateral screening mammography. TECHNIQUE: Bilateral breast tomosynthesis in addition to standard 2D mammography was performed. Curre nt study was also evaluated with a Computer Aided Detection (CAD) system. COMPARISON: Comparison is made to exams dated: 07/14/2014 mammogram, 07/26/2014 mammogram, and 10/13/19 16 mammogram. BREAST COMPOSITION: There are scattered areas of fibroglandular density in both breasts. FINDINGS: There are lobulated and circumscribed masses in the upper outer posterior left breast, zak uring 3.3 cm in transverse by 1.5 cm in craniocaudal dimension, in conglomerate. There is an oval ci rcumscribed 7 mm mass in the 6:00 posterior left breast, and another lobulated and circumscribed 11 m m mass in the subareolar left breast. No focal area of architectural distortion, asymmetry or suspic ious calcifications identified in the left breast. All of the masses in the left breast are new or i ncreased comparing to prior mammograms and therefore further characterization with ultrasound was per formed. There is a focal asymmetry in the upper outer middle to posterior right breast measuring 7.0 x 5.1 x 4.1 cm, likely the asymmetric density described on recent chest CT report. When comparing to prior m ammograms, the focal asymmetry in the right upper outer quadrant appears stable in size dating back t o at least 07/14/2014, but is increased in prominence comparing to the 2008 and 2012 mammograms. Alt sheng this could represent a benign process such as PASH, it is indeterminate. Further evaluation wi ultrasound was performed. Additionally, there are possible areas of architectural distortion in t he lateral, posterior right breast on CC tomosynthesis slice 2932/84, thought to project along the p osterior nipple line on the MLO view, for which further characterization with ultrasound was also per formed. There is a lobulated and circumscribed reniform shaped 8.8 mm mass in the upper outer neuropsychology service director ior right breast (CC tomosynthesis slice 27) for which further characterization with ultrasound was p erformed. Targeted ultrasound was performed in the left breast. In the 1:00 axes a proximally 12 cm from the n ipple, there are large lobulated abutting anechoic benign simple cysts. These measure at least 3 cm in conglomerate and are concordant with the mammographic finding of multiple abutting masses. Anothe r benign cyst is identified in the 9:00 periareolar left breast measuring 9.2 x 5.0 x 8.9 mm, correla ting with the subareolar mass, and a smaller oval anechoic benign simple cyst in the 6:00 left breast , 5 cm from the nipple, measuring 3.5 x 1.5 x 3.0 mm, correlating with the smallest circumscribed mas s in the 6:00 axis. Targeted ultrasound performed in the right breast demonstrates a lobulated predominantly anechoic cys t cluster in the 8:00 axis, 5 cm from the nipple, measuring 4.7 x 5.5 mm, corresponding to the lobula ana mammographic mass. The ultrasound measurements are underestimated as it is difficult to measure this mass in the largest plane without shadowing. There is dense glandular tissue with tubular inter spersed duct and stromal fibrosis in the 11:00 right breast, 5 cm from the nipple, corresponding to t he focal mammographic asymmetry occupying the upper outer quadrant. This also correlates with the CT finding. Given the increased conspicuity and prominence of this focal asymmetry comparing back to t he most remote 2009 mammogram it is indeterminate. Definitive characterization with tissue sampling is recommended. No other suspicious solid or cystic mass is seen, particularly no sonographic correl ate to the small subtle areas of architectural distortion seen in the lateral right breast on the CC tomosynthesis images. IMPRESSION: ACR BI-RADS CATEGORY 4: SUSPICIOUS, TARGETED ULTRASOUND ACR BI-RADS CATEGORY 4: SUSPICIO US 1. Stereotactic tomosynthesis guided biopsy is recommended in the right lateral breast for a subtle area versus areas of architectural distortion in the lateral right breast on CC tomosynthesis slice 2 9, that are new comparing to the tomosynthesis images performed in 2016, and no sonographic correlate was seen. 2. At the time of biopsy of the right breast distortion, stereotactic tomosynthesis guided biopsy ve rsus ultrasound-guided biopsy should also be performed for the large 7 cm focal asymmetry in the righ t upper outer quadrant, which could represent benign fibroglandular tissue or PASH, although this asy mmetry is increasingly prominent comparing to the 2009 mammograms. This focal asymmetry also correspo nds with the recent chest CT finding. These results and recommendations were discussed with the patient at the time of the exam. She tenta tively scheduled the right breast biopsies prior to leaving our department. Approximately 10% of breast cancers are not detected with mammography. A negative mammographic report should not delay biopsy if a clinically suggestive mass is present. Deborah Pulido M.D. ay/:05/12/2017 15:24:03 Software Engineer Web Services: María Garcia, [facility] letter sent: Abnormal 4/5 BI-RADS Code: ACR BI-RADS Category 4: Suspicious Ultrasound BI-RADS: ACR BI-RADS Category 4: Suspici ous
== END | disposition home or self-care (01) ==
LOC: C.MAMM 08:43
PROVIDERS: ATTEND Physician Assistant
DX: N64.89 Other specified disorders of breast (principal)

== ENCOUNTER → 2017-05-19 | Outpatient (CLI) | payer OTHER ==
--- NOTE | 2017-05-19 16:40 | ECHOCARDIOGRAM REPORT ---
*NOTICE TO RECEIVING REPUBLICAN AGENCY This information is strictly Confidential and protected under [place] law. [place] law prohibits you from making any further disclosure of this information unless further disclosure is expressly permitted by the written consent of the person to whom it pertains or is authorized by law. A general authorization for the release of medical or other information is not sufficient for this purpose. Hospital accepts no responsibility if the information is made available to any other person, INCLUDING THE PATIENT. Interpretation Summary * Name: IRIS ESTES Study Date: 05/19/2017 01:58 PM BP: 138/89 mmHg * Patient Location: [facility] HR: 60 * : 1970 (M/d/yyyy) Gender: Female Height: 65 in * Age: 47 yrs Ethnicity: CA Weight: 228 lb * Ordering Physician: Lilia Contreras * Referring Physician: Lilia Contreras A. PKikoAKiko * Performed By: Floyd Ordaz RCS * * Reason For Study: HTN, Acute Chest Pain, Dizziness * BSA: 2.1 m2 * -- Conclusions -- * Left ventricular systolic function is normal. * No regional wall motion abnormalities noted. * Ejection Fraction = 60-65%. * No significant valvular pathology. Procedure Details * A complete two-dimensional transthoracic echocardiogram was performed (2D, M-mode, Doppler and color flow Doppler). Left Ventricle * The left ventricle is normal in size. * There is normal left ventricular wall thickness. * Ejection Fraction = 60-65%. * Left ventricular systolic function is normal. * No regional wall motion abnormalities noted. Right Ventricle * The right ventricle is grossly normal size. * The right ventricular systolic function is normal as assessed by tricuspid annular plane systolic excursion (TAPSE) (normal >1.5 cm). Atria * The left atrial size is normal. * Right atrium not well visualized. * There is no evidence of atrial septal defect, but resolution does not allow assessment for a patent foramen ovale. Mitral Valve * The mitral valve anatomy is normal. * There is no mitral valve stenosis. * Significant mitral regurgitation is absent. Tricuspid Valve * The tricuspid valve is not well visualized, but is grossly normal. * Tricuspid stenosis is absent. * Significant tricuspid regurgitation is absent. Aortic Valve * The aortic valve is not well visualized. * The aortic valve opens well. * Aortic stenosis is absent. * There is no significant aortic regurgitation. Pulmonic Valve * The pulmonary valve is not well seen, but the Doppler examination is normal without significant regurgitation or stenosis. Great Vessels * The aortic root is normal size. * The pulmonary is not well visualized. Pericardium/Pleural * There is no pericardial effusion. Great Vessels * Normal inferior vena cava size and collapsability with sniff indicates a normal right atrial pressure of 3 mmHg MMode 2D Measurements and Calculations IVSd 1.0 cm IVSs 1.3 cm LVIDd 5.0 cm LVIDs 3.2 cm LVPWd 10 cm LVPWs 1.3 cm IVS/LVPW 1.0 FS 35.1 % EDV(Teich) 115.9 ml ESV(Teich) 41.6 ml EF(Teich) 64.1 % EDV(cubed) 121.8 ml ESV(cubed) 33.4 ml EF(cubed) 72.6 % % IVS thick 28.7 % % LVPW thick 30.2 % LV mass(C)d 179.8 grams LV mass(C)dI 86.0 grams/m\S\2 LV mass(C)s 136.2 grams LV mass(C)sI 65.1 grams/m\S\2 CO(Teich) 4.5 l/min CI(Teich) 2.1 l/min/m\S\2 SV(Teich) 74.3 ml SI(Teich) 35.5 ml/m\S\2 CO(cubed) 5.3 l/min CI(cubed) 2.5 l/min/m\S\2 SV(cubed) 88.4 ml SI(cubed) 42.3 ml/m\S\2 Ao root diam 3.3 cm Ao root area 8.8 cm\S\2 ACS 1.7 cm LA dimension 3.2 cm LA/Ao 0.97 LVAd ap4 30.2 cm\S\2 LVLd ap4 8.3 cm EDV(MOD-sp4) 92.2 ml LVAs ap4 14.7 cm\S\2 LVLs ap4 6.4 cm ESV(MOD-sp4) 32.7 ml EF(MOD-sp4) 64.5 % LVAd ap2 34.3 cm\S\2 LVLd ap2 8.7 cm EDV(MOD-sp2) 114.0 ml LVAs ap2 19.3 cm\S\2 LVLs ap2 7.0 cm ESV(MOD-sp2) 47.8 ml EF(MOD-sp2) 58.1 % CO(MOD-sp4) 3.6 l/min CI(MOD-sp4) 1.7 l/min/m\S\2 SV(MOD-sp4) 59.5 ml SI(MOD-sp4) 28.4 ml/m\S\2 CO(MOD-sp2) 4.0 l/min CI(MOD-sp2) 1.9 l/min/m\S\2 SV(MOD-sp2) 66.2 ml SI(MOD-sp2) 31.7 ml/m\S\2 Doppler Measurements and Calculations MV E max kumar 80.5 cm/sec MV A max kumar 60.6 cm/sec MV E/A 1.3 MV P1/2t max kumar 92.2 cm/sec MV P1/2t 81.1 msec MVA(P1/2t) 2.7 cm\S\2 MV dec slope 332.8 cm/sec\S\2 MV dec time 0.27 sec Ao V2 max 149.4 cm/sec Ao max PG 8.9 mmHg Ao max PG (full) 4.6 mmHg LV V1 max PG 4.4 mmHg LV V1 max 104.3 cm/sec PA V2 max 112.4 cm/sec PA max PG 5.1 mmHg
== END | disposition home or self-care (01) ==
LOC: C.CPL 13:44
PROVIDERS: ATTEND Physician Assistant
DX: R70.0 Elevated erythrocyte sedimentation rate (principal); I10 Essential (primary) hypertension; R07.9 Chest pain, unspecified; R42 Dizziness and giddiness

== ENCOUNTER → 2017-05-20 | Outpatient (CLI) | payer OTHER ==
--- NOTE | 2017-05-20 13:44 | Discharge Instructions ---
Discharge Instructions Procedure Procedure Date: May 20, 2017. Reason for visit: Right Distortion, Right Asymmetry. Discharge Discharge Date: May 20, 2017. Discharge Diagnosis: post right breast stereotactic ana rosa guided biopsy of a focal asymmetry int he upper outer breast Instructions Activity Recommendations: Additional Limitations (see below) Return to School/Work: no limitations Recommended Home Diet: No Limitations Provider Instructions: ACTIVITY RECOMMENDATIONS: * No lifting, pushing, pulling or exercising the affected side for three days. RETURN TO SCHOOL/WORK: * You may return to work/school after the procedure, but do not perform any strenuous activities for 24 to 48 hours. MEDICATIONS: * Tylenol (two 325 mg) every four to six hours if needed for mild pain (if not allergic to Tylenol). DIET: * Resume previous diet. SPECIAL CARE INSTRUCTIONS: * Keep biopsy site dry for 24 hours. May shower after 24 hours, but do not soak (bathe) incision. * May remove Tegaderm (plastic patch) tomorrow AFTER showering. * Leave the steri-strips on for one week. Allow the steri-strips to fall off by themselves. If not off after one week, you may remove them. You may place a Bandaid crosswise over the strips, if desired. * Apply ice 10 minutes on and 10 minutes off as needed. * Wear a bra at bedtime to sleep more comfortably for 2-3 days. * Your referring physician should have the results after approximately 5 to 7 business days. * Call for unusual bleeding, fever, drainage, etc or if you have any questions call [phone] during normal business hours or after hours call Dr Pulido, . FOLLOW UP VISIT: Follow-up with Referring Physician as scheduled. Allergies Coded Allergies: Ibuprofen (Verified Adverse Reaction, Mild, NAUSEA AND VOMITING, 05/04/17) Jennifer Love Recommendations: Call your doctor if: * Temperature above 101 degrees * Pain not relieved by pain medicine ordered * There is increased drainage or redness from any incision * You have any unanswered questions or concerns. Your Doctors Instructions noted above were prepared by provider Deborah Pulido. Patient Signature Section: Patient Instructions Signature Page Viola Scalesdeo Patient (or Guardian) Signature/Date: I have read and understand the instructions given to me by my caregivers. Caregiver/RN/Doctor Signature/Date: The above-named patient and/or guardian has received patient instructions on this date. + Original Patient Signature Page (only) stays with chart. Please make copy for patient.
--- NOTE | 2017-05-20 15:15 | MAMMOGRAPHY REPORT ---
UNILATERAL RIGHT DIGITAL DIAGNOSTIC MAMMOGRAM TOMOSYNTHESIS: 05/20/2017 CLINICAL HISTORY: 7 cm global versus regional asymmetry in the right upper outer quadrant, and subtle area of architectural distortion in the lateral right breast. Patient presents for stereotactic francois osynthesis guided biopsy 2 in the right breast. Please refer to the report from right breast stereotactic tomosynthesis guided biopsy performed at [facility] same time for full detail. IMPRESSION: POST PROCEDURE IMAGING FOR MARKER PLACEMENT Please refer to the report from right breast stereotactic tomosynthesis guided biopsy performed at e same time for full detail. Approximately 10% of breast cancers are not detected with mammography. A negative mammographic report should not delay biopsy if a clinically suggestive mass is present. Deborah Pulido M.D. ay/:05/20/2017 13:48:28 Attending Technologist: María Garcia, [facility] Pin Machine Operator: Brittany SHEN(R)(M), [facility] BI-RADS Code: Post Procedure Imaging For Marker Placement
--- NOTE | 2017-05-20 15:15 | MAMMOGRAPHY REPORT ---
THIS REPORT HAS BEEN AMENDED. STEREOTACTIC GUIDED BIOPSY RIGHT BREAST: 05/20/2017 CLINICAL HISTORY: Global versus regional 7 cm asymmetry occupying the right upper outer quadrant that is increasingly prominent compared to more remote prior mammograms, and subtle area of architectural distortion in the lateral right breast. Patient presents for stereotactic tomosynthesis guided biop sy 2. COMPARISON: Comparison is made to exams dated: 05/12/2017 mammogram, 05/12/2017 [place] [facility] - [facility], 10/13/2015 mammogram, 07/26/2014 mammogram, 07/14/2014 mammogram, and 05/07/2012 [facility] mogram [facility]. PATIENT CONSENT: After explaining the risks, benefits and alternatives of the procedure to the patien t, informed consent was obtained both verbally and in writing. Specific risks include: Bleeding, inf ection, puncture of adjacent structure, pain, nontarget biopsy, sampling error, metal allergy and med ication reaction. PROCEDURE DESCRIPTION: A time-out was performed and the right breast was confirmed as the site of bio psy. The patient was placed prone on the stereotactic biopsy table and the right breast was placed i n CC from above compression. The subtle area of architectural distortion was to be the first target for biopsy, given the subtle n ature of the finding and possibility of a obscuring this lesion if there was bleeding from the other biopsy. The right breast was positioned and compression was performed along the lateral aspect in th e area of subtle distortion. The spot compression/spot magnification magnified tomosynthesis hand laster v iew does not demonstrate persistent distortion. Positioning was then changed and an additional tomos ynthesis hand laster view was obtained which again does not demonstrate persistent distortion. This sugges ts the finding was artifactual, likely representing overlapping Levy's ligaments and computerized t argeting of the global versus regional asymmetry in the right upper outer quadrant was subsequently p erformed. The skin was prepped with Betadine. 1% Lidocaine with and without epinipherine was adminis tered as local anesthesia. A small skin incision was made. Through the incision, the needle was inse rted to the depth determined by the computer. 7 samples were obtained using a [employer] 9-gauge vac uum-assisted biopsy device. A postbiopsy tomosynthesis view was obtained after placement of a metall ic biopsy marker clip and this demonstrates the biopsy cavity centrally within the dense tissue. The re was no immediate complication. Hemostasis was achieved after several minutes of manual compression . The samples were sent to pathology in an appropriately labeled container. Postprocedure CC and ML tomosynthesis images were obtained. There is a new dumbbell-shaped biopsy ma rker clip in the upper outer middle one third of the right breast. The air pocket denoting the biops y cavity is located within the focal asymmetry in question, compatible with adequate tissue sampling. Pathology is pending. There is no evidence of persistent distortion on either the right CC or ML p ostprocedure tomosynthesis views, suggesting the distortion was artifactual although a six-month foll ow-up right diagnostic tomosynthesis mammogram is recommended to ensure stability given that that por tion of the biopsy was canceled. IMPRESSION: STEREOTACTIC GUIDED BIOPSY 1. Status post stereotactic tomosynthesis guided biopsy of the global versus regional 7 cm asymmetry in the right upper outer quadrant, with dumbbell-shaped biopsy marker clip placed at the site. 2. A subtle area of architectural distortion in the lateral right breast did not persist with additi onal magnified tomosynthesis imaging performed during biopsy targeting, and did not persist on the po st procedure tomosynthesis mammograms, suggesting it was artifactual. However, a six-month follow-up right diagnostic tomosynthesis mammogram and possible ultrasound is recommended to ensure stability after the canceled portion of the biopsy. These findings and new recommendations were discussed with the patient after the stereotactic biopsy of the asymmetry in the right breast. Deborah Pulido M.D. ay/:05/20/2017 13:56:42 Attending Technologist: María Garcia, [facility] Senior Game Developer: Brittany Barraza RT(R)(M), [facility] AMENDMENT: 05/22/2017 Deborah Pulido M.D. Pathology results from the stereotactic biopsy of a regional/global asymmetry in the upper outer quad rant of the right breast yielded benign breast tissue with fibrocystic changes. Negative for in situ and invasive carcinoma. Pathology results are concordant with the imaging appearance of this asymme try and it corresponds to the asymmetric density seen on initial CT, confirming benignity. A six-month follow-up right tomosynthesis mammogram is still recommended to ensure stability in the l ateral right breast, for a suggested area of distortion that was no longer identified at time of biop sy and likely represents benign overlapping tissue.
== END | disposition home or self-care (01) ==
LOC: C.MAMM 12:38
PROVIDERS: ATTEND Physician Assistant
DX: N60.11 Diffuse cystic mastopathy of right breast (principal)

== ENCOUNTER 2018-06-01 15:42 | Observation (INO) ==
[2018-06-01] MEDS ORDERED: KETOROLAC TROMETHAMINE 15 MG/ML VIAL IV ONE (16:05)
[2018-06-01] MEDS ORDERED: ASPIRIN CHEW 324 MG PO STA (16:05)
[2018-06-01] MEDS ORDERED: GI COCKTAIL ED USE PO ONE (16:05)
[2018-06-01] MEDS ORDERED: SODIUM CHLORIDE 0.9% 1000ML 1,000 ML IV SCH (16:15)
--- NOTE | 2018-06-01 16:34 | XRay Report ---
XR chest 1V portable CLINICAL HISTORY: Atypical chest pain COMPARISON STUDY: 05/03/2017 FINDINGS: The cardiac and mediastinal contours are normal. There is no evidence of focal pulmonary co nsolidation. There is no evidence of failure. No pleural effusions are visualized.[ IMPRESSION: No active disease in the chest. Electronically signed by: Ben Campbell M.D. 06/01/2018 4:33 PM
[2018-06-01 17:06] LABS: Basophils # (auto) 0.04 K/uL (0-0.2); Basophils % (auto) 0.9 %; Eosinophils # (auto) 0.09 K/uL (0-0.5); Eosinophils % (auto) 2.1 %; Hematocrit (blood only) 41.7 % (37-47); Hemoglobin 14.5 g/dL (12.0-16.0); Immature Granulocytes # (auto) 0.01 K/uL (0.00-0.02); Immature Granulocytes % (auto) 0.2 %; Lymphocytes # (auto) 1.64 K/uL (1.2-3.4); Lymphocytes % (auto) 38.5 %; Mean Corpuscular Hgb Conc 34.8 g/dL (32-36); Mean Corpuscular Volume 92.7 fL (80-100); Mean Platelet Volume 10.8 fL (7.4-10.4); Neutrophils # (auto) 2.18 K/uL (1.4-6.5); Neutrophils % (auto) 51.3 %; Platelet Count 273 K/uL (130-400); RDW Coefficient of Variation 12.4 % (11.5-14.5); RDW Standard Deviation 42.3 fL (36.4-46.3); White Blood Count 4.26 K/uL (4.8-10.8)
[2018-06-01 17:19] LABS: D Dimer 250 ug/L FEU (0-500)
[2018-06-01 17:35] LABS: Alanine Aminotransferase 37 U/L (12-78); Albumin Level 3.7 gm/dl (3.4-5.0); Aspartate Aminotransferase 19 U/L (15-37); BUN Creatinine Ratio 14.3 (10-20); Blood Urea Nitrogen 12 mg/dl (7-18); Calcium 8.8 mg/dl (8.5-10.1); Carbon Dioxide 29 mmol/L (21-32); Chloride 107 mmol/L (98-107); Creatinine Clr Calc Pharmacy 97.9 ml/min; Est GFR (African American) 95.9; Est GFR (Non-African American) 82.8; Glucose 86 mg/dl (70-99); Potassium 3.7 mmol/L (3.5-5.1); Sodium 142 mmol/L (136-145)
[2018-06-01 17:40] LABS: Albumin Globulin Ratio 0.9 (0.9-2); Alkaline Phosphatase 72 U/L (45-117); Bilirubin,Total 0.7 mg/dl (0.2-1); Globulin 4.2 gm/dl (2.5-4.0); Total Protein 7.9 gm/dl (6.4-8.2); Troponin I < 0.015 ng/ml (0-0.045)
[2018-06-01] MEDS ORDERED: NITROGLYCERIN SL 0.4 MG/TAB TAB SL STA (18:13)
--- NOTE | 2018-06-01 19:38 | History & Physical Report ---
Date of Service June 01, 2018 Assessment & Plan (1) Atypical chest pain: The patient will be admitted to telemetry unit for observation Initial EKG and troponin unremarkable May have costochondritis Serial troponins to rule out ACS Sublingual nitro for chest pain Stress echo in the morning when ruled out Present on Admission?: Yes (2) GERD (gastroesophageal reflux disease): Has history of GERD Reasonably controlled with Protonix Continue Protonix now (3) Hypertension: Blood pressure is controlled Continue current medications (4) Major depressive disorder: Continue current medications No acute psychosis DVT prophylaxis SCDs increase ambulation History of Present Illness Chief Complaint: Chest pain in the precordial area Primary Care Provider: Christel Wakefield She is a 48-year-old female with significant past medical history of major depressive disorder, generalized anxiety disorder, hypertension, benign positional vertigo and severe GERD apparently has been complaining of upper central and precordial chest pain since this known. She has a severe history of GERD and she takes Protonix to control the pain. She also complains of some pain which seems to be pleuritic in nature that are resolved with NSAID use. The pain she has been complaining since noon seems to be in the upper chest and precordial area which is different than her usual chest pain from GERD. She did have some nausea but no vomiting, she complained to have some funny feeling in the head but no dizziness, she did not have any shortness of breath and/or palpitation associated with it. He is worried about having a heart attack. She remained hemodynamically stable in the emergency room and the pain resolved with sublingual nitro x1 Her initial EKG and troponin came out to be unremarkable but given the atypical nature of chest pain she was admitted to telemetry unit rule out ACS and possible stress echo in the morning Allergies Allergy/AdvReac Type Severity Reaction Status Date / Time ibuprofen AdvReac Mild NAUSEA AND Verified 06/01/18 17:11 VOMITING Home Medications Home Medications Medication Instructions Recorded Confirmed Type jbfekzo-hviuuradnygfi-txosnsms 2 tab PO Q6H PRN 06/01/18 06/01/18 History [Excedrin Migraine] bupropion HCl 150 mg PO QAM 06/01/18 06/01/18 History cyclobenzaprine 10 mg PO HS PRN 06/01/18 06/01/18 History dicyclomine 10 mg PO QAM 06/01/18 06/01/18 History doxycycline hyclate 100 mg PO QAM 06/01/18 06/01/18 History lisinopril-hydrochlorothiazide 1 tab PO DAILY 06/01/18 06/01/18 History pantoprazole 20 mg PO QAM 06/01/18 06/01/18 History trazodone 50 mg PO HS PRN 06/01/18 06/01/18 History Past Med/Surg History Medical History Recurrent herpes labialis Benign paroxysmal positional vertigo GERD (gastroesophageal reflux disease) Hypertension PADMINI (generalized anxiety disorder) Major depressive disorder Social History Feels Safe at Home: Yes Smoking Status: Former smoker Review of Systems All systems reviewed & are unremarkable except as noted in HPI & below Physical Exam Vital Signs (Past 24 Hours): Last Vital Signs Temp 36.8 C 06/01/18 15:43 Pulse 67 06/01/18 18:36 Resp 15 06/01/18 18:36 BP 129/89 06/01/18 18:36 Pulse Ox 95 06/01/18 18:36 Physical Exam: No apparent distress at rest Constitutional: WD/WN, vitals as above well developed and well nourished; no acute distress Eyes: PERRL, conjunctivae normal, anicteric sclerae ENMT: external ear and nose normal, oropharynx normal Neck: trachea midline, no thyromegaly Respiratory: normal respiratory effort, lungs clear to auscultation Tenderness noted over costochondral junction on the left side Cardiovascular: Rate/Rhythm: regular rate and regular rhythm Heart Sounds: normal S1 and normal S2 Gastrointestinal (Abdomen): normal bowel sounds, soft, nontender, no hepatosplenomegaly Neurologic: PERRL, EOMI, accommodation nl, no face palsy, no dysarthria Results & Data Laboratory Results Short CBC 06/01/18 Range/Units 16:47 WBC 4.26 L (4.8-10.8) K/uL Hgb 14.5 (12.0-16.0) g/dL Hct 41.7 (37-47) % Plt Count 273 (130-400) K/uL BMP 06/01/18 16:47 Sodium 142 Potassium 3.7 Chloride 107 Carbon Dioxide 29 BUN 12 Creatinine 0.84 Glucose 86 Calcium 8.8 Cardiac Enzymes 06/01/18 Range/Units 16:47 Troponin I < 0.015 (0-0.045) ng/ml Liver Function 06/01/18 Range/Units 16:47 Total Bilirubin 0.7 (0.2-1) mg/dl AST 19 (15-37) U/L ALT 37 (12-78) U/L Alkaline Phosphatase 72 (45-117) U/L Albumin 3.7 (3.4-5.0) gm/dl
[2018-06-01] MEDS ORDERED: NITROGLYCERIN SL 0.4 MG/TAB TAB SL PRN (19:43)
[2018-06-01] MEDS ORDERED: ALUMINUM/MAGNESIUM SUSP 30 ML UDC PO PRN (19:43)
--- NOTE | 2018-06-01 20:20 | Emergency Department Note ---
Entered by Mara Arellano acting as a scribe for History of Present Illness General Chief complaint: Shortness of Breath/Dyspnea Stated complaint: SHARP PAIN RUQ,SOB Source: patient History of Present Illness Onset (ago): hour(s) 6 Location: chest Pain Consistency: + other (worsening) Maximum Pain Intensity: 9 Current Pain Intensity: 9 Quality: + burning and + sharp Relieved By: not by other (hot tub, shower) Exacerbated By: + other (breathing) Associated symptoms: + denies other symptoms (rhinorrhea, leg swelling, hemop tysis), + fever/chills (fever), + shortness of breath and + other (itchiness last night, GERD, diarrhea); no cough The patient is a 48 year old female who presents to the Emergency Room with c omplaints of worsening chest pain starting 6 hours ago. The patient states that last night for no reason she became itchy all over. She states that she has no idea why, but took a Benadryl and went to bed. She states that she woke up this morning groggy, but expected that. She states that after being up for a little bit she started to notice this sharp pain under her right breast. She states that the pain was worse with deep breathing. She states that she just tried not to breathe deeply then. She states that after a little bit, it hurt with even shallow breathing. The patient states that she then thought it might just be musculoskeletal, so she got in the hot tub and then the shower. She states that it didnt help. She reports that when she got out of the shower 2 hours ago she had an episode of GERD. She states that this was surprising as she hasnt missed any of her medications. She states that since then she has also had a burning in the center of her chest. The patient states that she still has these symptoms. She reports that the pain is a 6/10 with normal breathing and a 9/10 with deep breathing. The patient complains of shortness of breath when the pain is bad and when she talks too much. The patient notes that she had diarrhea yesterday and a slight fever today. She notes that she does have an underlying GI issue that causes diarrhea. The patient denies cough, rhinorrhea, leg swelling, recent travel, a history of cancer, a history of diabetes, a history of hyperlipidemia, a history of blood clots, a family history of a sudden at a young age, hemoptysis, and the use of control/estrogen. Home Medications Home Medications Medication Instructions Recorded Confirmed Type zaoecre-guejczmvxkrul-[id number] 2 tab PO Q6H PRN 06/01/18 06/01/18 History [Excedrin Migraine] bupropion HCl 150 mg PO QAM 06/01/18 06/01/18 History cyclobenzaprine 10 mg PO HS PRN 06/01/18 06/01/18 History dicyclomine 10 mg PO QAM 06/01/18 06/01/18 History doxycycline hyclate 100 mg PO QAM 06/01/18 06/01/18 History lisinopril-hydrochlorothiazide 1 tab PO DAILY 06/01/18 06/01/18 History pantoprazole 20 mg PO QAM 06/01/18 06/01/18 History trazodone 50 mg PO HS PRN 06/01/18 06/01/18 History Allergies Allergy/AdvReac Type Severity Reaction Status Date / Time ibuprofen AdvReac Mild NAUSEA AND Verified 06/01/18 17:11 VOMITING Past Med/Surg History Medical History Recurrent herpes labialis Benign paroxysmal positional vertigo GERD (gastroesophageal reflux disease) Hypertension PADMINI (generalized anxiety disorder) Major depressive disorder Surgical History History of hysterectomy (Resolved) Hx of cholecystectomy Family History Other Cancer Diabetes Gallbladder disease Heart disease Hypertension Social History marital status: Current Living Situation: Spouse current occupational status: employed Feels Safe at Home: Yes Smoking Status: Former smoker Hx Alcohol Use: Yes Review of Systems See HPI for pertinent positives & negatives. and A total of 10 systems reviewed and were otherwise negative Physical Exam Vital Signs Vital Signs - 24 hr 06/01/18 15:43 06/01/18 16:56 06/01/18 17:01 Temperature 36.8 C Temperature Source Oral Sepsis Recent Fever Within 48 Hours No Sepsis New/Unexplained Change in Mental Status No Sepsis Action Taken by Nursing No Action Required Pulse Rate 68 72 Pulse Rate [Apical] 57 L Pulse Rate from SpO2 Sensor 69 Pulse Rhythm [Apical] Pulse Strength [Apical] Respiratory Rate 19 20 17 Respiratory Effort / Characteristics Non-Labored Non-Labored Spontaneous Respiratory Depth Normal Normal Respiratory Pattern Agonal Regular Blood Pressure 158/98 H 118/81 Blood Pressure [Right Arm] 142/88 H Blood Pressure Mean 118 93 Blood Pressure Mean [Right Arm] 106 Pulse Oximetry 99 95 96 Oxygen Delivery Method Room Air Room Air Room Air 06/01/18 17:31 06/01/18 18:00 06/01/18 18:31 Temperature Temperature Source Sepsis Recent Fever Within 48 Hours Sepsis New/Unexplained Change in Mental Status Sepsis Action Taken by Nursing Pulse Rate 61 66 60 Pulse Rate [Apical] Pulse Rate from SpO2 Sensor 57 L 67 61 Pulse Rhythm [Apical] Pulse Strength [Apical] Respiratory Rate 19 23 17 Respiratory Effort / Characteristics Respiratory Depth Respiratory Pattern Blood Pressure 146/89 H 137/98 132/96 Blood Pressure [Right Arm] Blood Pressure Mean 108 111 108 Blood Pressure Mean [Right Arm] Pulse Oximetry 97 97 96 Oxygen Delivery Method Room Air Room Air Room Air 06/01/18 18:36 06/01/18 20:18 Temperature Temperature Source Sepsis Recent Fever Within 48 Hours Sepsis New/Unexplained Change in Mental Status Sepsis Action Taken by Nursing Pulse Rate Pulse Rate [Apical] 67 72 Pulse Rate from SpO2 Sensor Pulse Rhythm [Apical] Regular Pulse Strength [Apical] Normal Respiratory Rate 15 20 Respiratory Effort / Characteristics Non-Labored Respiratory Depth Normal Respiratory Pattern Regular Blood Pressure Blood Pressure [Right Arm] 129/89 136/92 Blood Pressure Mean Blood Pressure Mean [Right Arm] 102 106 Pulse Oximetry 95 99 Oxygen Delivery Method Room Air Room Air GENERAL: Sitting up in bed, alert, well appearing, well nourished, no distress, non-toxic EYE EXAM: normal conjunctiva. OROPHARYNX: no exudate, no erythema, lips, buccal mucosa, and tongue normal and mucous membranes are moist NECK: supple, no nuchal rigidity, no adenopathy, non-tender LUNGS: Clear to auscultation. Normal chest wall mechanics HEART: no murmurs, S1 normal and S2 normal ABDOMEN: abdomen soft, non-tender, normo-active bowel, sounds, no masses, no rebound or guarding. BACK: Back is symmetrical on inspection and there is no deformity, no midline tenderness, no CVA tenderness. SKIN: no rashes and no bruising UPPER EXTREMITIES: upper extremities are grossly normal. LOWER EXTREMITIES: No pitting edema. Calves are equal bilaterally. NEURO EXAM: Normal sensorium, cranial nerves II-XII grossly intact, normal speech, no gross weakness of arms, no gross weakness of legs. Course ED COURSE: Vital signs were reviewed and showed that they are normal. The patients medical record was reviewed The above diagnostic studies were performed and reviewed. ED treatments and interventions as stated above. 1555: The patient was evaluated in room C5. A complete history and physical examination was performed. 1727: I reevaluated the patient and her pleuritic chest pain has gotten better. 1839: Upon reevaluation, the patient is feeling better after the Nitroglycerin. I discussed my findings with the patient and she understands and agrees with the treatment plan. Based on the patients age, coexisting illnesses, exam and lab findings the decision to treat as an inpatient was made. The patient remained stable while under my care. The patient will be evaluated for further management. 1901: I reviewed the patient's case with LAURA Mary Hospitalist. She will evaluate the patient for further management. Consultations Consultation #1: I reviewed the patient's case with LAURA Mary. She will evaluate the patient for further management. Time: 19:01 Administered Medications Discontinued Medications Al Hydrox/Mg Hydrox/Simethicone () 1 dose PO ONE ONE Stop: 06/01/18 16:06 Last Admin: 06/01/18 16:53 Dose: 1 dose Documented by: [id number] Aspirin (Aspirin) 324 mg PO NOW STA Stop: 06/01/18 16:06 Last Admin: 06/01/18 16:53 Dose: 324 mg Documented by: [id number] Sodium Chloride (Nss 1000ml) 1,000 mls @ 999 mls/hr IV .Q1H1M RUKHSANA Stop: 06/01/18 17:15 Last Infusion: 06/01/18 17:53 Dose: 0 mls/hr Documented by: [id number] Admin: 06/01/18 16:51 Dose: 999 mls/hr Documented by: [id number] Ketorolac Tromethamine (Toradol) 15 mg IV NOW ONE Stop: 06/01/18 16:06 Last Admin: 06/01/18 16:51 Dose: 15 mg Documented by: [id number] Nitroglycerin (Nitrostat) 0.4 mg SL NOW STA Stop: 06/01/18 18:14 Last Admin: 06/01/18 18:30 Dose: 0.4 mg Documented by: [id number] Medical Decision Making Differential Diagnosis Differential diagnoses includes but is not limited to acute coronary syndrome, myocardial infarction, pericarditis, pulmonary embolus, aortic dissection, pneumonia, pneumothorax, musculoskeletal, shingles, esophageal. Medical Records Attestation: I reviewed the patient's medical records. Home Medications Current Medication List: was personally reviewed by me Laboratory Data Attestation: I reviewed the patient's lab results. Result diagrams: 06/01/18 16:47 06/01/18 16:47 Lab Results 06/01/18 06/01/18 06/01/18 Range/Units 16:47 16:47 16:47 WBC 4.26 L (4.8-10.8) K/uL RBC 4.50 (4.2-5.4) M/uL Hgb 14.5 (12.0-16.0) g/dL Hct 41.7 (37-47) % MCV 92.7 (80-100) fL MCH 32.2 (25-34) pg MCHC 34.8 (32-36) g/dL RDW Std Deviation 42.3 (36.4-46.3) fL RDW Coeff of Priyanka 12.4 (11.5-14.5) % Plt Count 273 (130-400) K/uL MPV 10.8 H (7.4-10.4) fL Immature Gran % (Auto) 0.2 % Neut % (Auto) 51.3 % Lymph % (Auto) 38.5 % [place] % (Auto) 7.0 % Eos % (Auto) 2.1 % Baso % (Auto) 0.9 % Immature Gran # (Auto) 0.01 (0.00-0.02) K/uL Neut # (Auto) 2.18 (1.4-6.5) K/uL Lymph # (Auto) 1.64 (1.2-3.4) K/uL [place] # (Auto) 0.30 (0.11-0.59) K/uL Eos # (Auto) 0.09 (0-0.5) K/uL Baso # (Auto) 0.04 (0-0.2) K/uL D-Dimer 250 (0-500) ug/L FEU Sodium 142 (136-145) mmol/L Potassium 3.7 (3.5-5.1) mmol/L Chloride 107 (98-107) mmol/L Carbon Dioxide 29 (21-32) mmol/L Anion Gap 7.0 (3-11) BUN 12 (7-18) mg/dl Creatinine 0.84 (0.6-1.2) mg/dl Est Cr Clr Drug Dosing 97.9 ml/min Est GFR ( Amer) 95.9 Est GFR (Non-Af Amer) 82.8 BUN/Creatinine Ratio 14.3 (10-20) Glucose 86 (70-99) mg/dl Calcium 8.8 (8.5-10.1) mg/dl Total Bilirubin 0.7 (0.2-1) mg/dl AST 19 (15-37) U/L ALT 37 (12-78) U/L Alkaline Phosphatase 72 (45-117) U/L Troponin I < 0.015 (0-0.045) ng/ml Total Protein 7.9 (6.4-8.2) gm/dl Albumin 3.7 (3.4-5.0) gm/dl Globulin 4.2 H (2.5-4.0) gm/dl Albumin/Globulin Ratio 0.9 (0.9-2) Lipase 190 (73-393) U/L Imaging Data Radiologist's Impression: Radiology results as stated below per my review and the radiologist's interpretation: XR chest 1V portable CLINICAL HISTORY: Atypical chest pain COMPARISON STUDY: 05/03/2017 FINDINGS: The cardiac and mediastinal contours are normal. There is no evidence of focal pulmonary consolidation. There is no evidence of failure. No pleural effusions are visualized.[ IMPRESSION: No active disease in the chest. Electronically signed by: Ben Campbell M.D. 06/01/2018 4:33 PM ECG Data Attestation: I personally reviewed and interpreted this ECG as follows: Indication: chest pain Rate (beats per minute): 63 Rhythm: sinus rhythm Findings: + other (normal axis); no PVC Additional Comments: REPEAT: Sinus rhythm at a rate of 66. Normal axis. No PVCs. Blood Pressure Blood Pressure Findings: Normal blood pressure Blood Pressure Disposition: did not require urgent referral MDM Narrative Patient is a 48-year-old female with a past medical history of hypertension and remote history of smoking 15 years ago that presents the ER for chest pain. She has a pleuritic pain under her right breast which started earlier today around 10 AM. She also has midsternal burning and another chest pain underneath this burning. Toradol improve the pleuritic pain. GI cocktail without improvement. Patient was given nitro and the chest pain improved significantly. Patient was given aspirin as well. Labs show no significant leukocytosis or anemia. D- dimer was negative and a low risk patient and this was not explored any further. BMP along with LFTs and lipase was unremarkable. Troponin was normal. Chest x-ray unremarkable. Patient was updated bedside. Offered repeat troponin versus observation in the low risk but with her symptoms improving with nitro pa yazmin preferred to stay and I felt this was reasonable at this time. She was updated bedside and discussed with the hospitalist. Repeat EKG shows no changes. Impression & Plan Precordial chest pain Discharge Plan Visit Data Chief Complaint: Shortness of Breath/Dyspnea Stated Complaint: SHARP PAIN RUQ,SOB ED Provider: Santi Cr Discharge Problem: Precordial chest pain Patient Disposition: Being Evaluated by Hospitalist The scribe's documentation has been prepared under my direction and personally reviewed by me in its entirety. I confirm that the note above accurately reflects all work, treatment, procedures, and medical decision making performed by me.
[2018-06-01] MEDS ORDERED: NON-FORMULARY MEDICATION (Aspirin-Acetaminophen-Caffeine [Excedrin Migraine] 2 TAB) PO PRN (20:27)
[2018-06-01] MEDS ORDERED: TRAZODONE HCL 50 MG TAB PO PRN (20:27)
[2018-06-01] MEDS ORDERED: CYCLOBENZAPRINE HCL 10 MG TAB PO PRN (20:27)
[2018-06-02 07:41] VITALS: BP 128/83; TEMP 98.4; O2SAT 99
[2018-06-02] MEDS ORDERED: DICYCLOMINE HCL 10 MG CAP PO SCH (09:00)
[2018-06-02] MEDS ORDERED: BuPROPion XL 150 MG TABCR PO SCH (09:00)
[2018-06-02] MEDS ORDERED: PANTOprazole 40 MG TAB PO SCH (09:00)
[2018-06-02] MEDS ORDERED: LISINOPRIL/HCTZ 20/12.5MG 1 TAB TAB PO SCH (09:00)
[2018-06-02] MEDS ORDERED: PERFLUTREN LIPID MICROSPHERE (DEFINITY) IV ONE (10:03)
--- NOTE | 2018-06-02 11:08 | Hospitalist Progress Note ---
Date of Service June 02, 2018 Assessment & Plan (1) Atypical chest pain: DD: costochondritis, GERD EKG: No signs of Ischemia CXR:No active disease in the chest. Troponin X 3: Negative Stress Test: Negative May need follow up with Cardiology as outpatient if symptoms do not resolve (2) GERD (gastroesophageal reflux disease): H/O GERD Continue Protonix (3) Hypertension: controlled Continue home meds (4) Major depressive disorder: Continue bupropion, Trazadone H/O IBS: Continue Dicyclomine H/O Rosacea: On Doxycycline DVT Px: SCDs Disposition: Plan to discharge home today Subjective Patient is seen and examined at bedside Chest pain much improved today Denies SOB, dizziness, nausea Had Stress test today No other complaints Physical Exam Vital Signs (Past 24 Hours): Last Vital Signs Temp 36.9 C 06/02/18 07:40 Pulse 59 L 06/02/18 07:40 Resp 18 06/02/18 07:40 BP 128/83 06/02/18 07:40 Pulse Ox 99 06/02/18 07:40 Physical Exam: Physical Exam: Vitals signs as noted above General Appearance:Moderately built and nourished, no apparent distress Head: normocephalic, Atraumatic Eyes: normal inspection, EOMI Neck: supple, Trachea midline Respiratory/Chest: Normal breath sounds, CTA Cardiovascular: S1, S2, No murmur Abdomen/GI:Soft, Non tender, Bowel sounds present Extremities/Musculoskelatal:normal inspection, no edema Neurologic/Psych:AAOX3, grossly no focal neurological deficits Skin: normal color, warm Results & Data Laboratory Results Short CBC 06/01/18 Range/Units 16:47 WBC 4.26 L (4.8-10.8) K/uL Hgb 14.5 (12.0-16.0) g/dL Hct 41.7 (37-47) % Plt Count 273 (130-400) K/uL BMP 06/01/18 16:47 Sodium 142 Potassium 3.7 Chloride 107 Carbon Dioxide 29 BUN 12 Creatinine 0.84 Glucose 86 Calcium 8.8 Cardiac Enzymes 06/01/18 06/01/18 06/02/18 Range/Units 16:47 22:30 06:06 Troponin I < 0.015 < 0.015 < 0.015 (0-0.045) ng/ml Liver Function 06/01/18 Range/Units 16:47 Total Bilirubin 0.7 (0.2-1) mg/dl AST 19 (15-37) U/L ALT 37 (12-78) U/L Alkaline Phosphatase 72 (45-117) U/L Albumin 3.7 (3.4-5.0) gm/dl Diagnostic Findings CXR: No active disease in the chest.
[2018-06-02 11:42] VITALS: PULSE 91
--- NOTE | 2018-06-02 11:51 | Discharge Summary ---
Date of Service June 02, 2018 Admission HPI Per Admitting Provider She is a 48-year-old female with significant past medical history of major depressive disorder, generalized anxiety disorder, hypertension, benign positional vertigo and severe GERD apparently has been complaining of upper central and precordial chest pain since this known. She has a severe history of GERD and she takes Protonix to control the pain. She also complains of some pain which seems to be pleuritic in nature that are resolved with NSAID use. The pain she has been complaining since noon seems to be in the upper chest and precordial area which is different than her usual chest pain from GERD. She did have some nausea but no vomiting, she complained to have some funny feeling in the head but no dizziness, she did not have any shortness of breath and/or palpitation associated with it. He is worried about having a heart attack. She remained hemodynamically stable in the emergency room and the pain resolved with sublingual nitro x1 Her initial EKG and troponin came out to be unremarkable but given the atypical nature of chest pain she was admitted to telemetry unit rule out ACS and possible stress echo in the morning Admission Exam Per Admitting Provider Physical Exam: No apparent distress at rest Constitutional: WD/WN, vitals as above well developed and well nourished; no acute distress Eyes: PERRL, conjunctivae normal, anicteric sclerae ENMT: external ear and nose normal, oropharynx normal Neck: trachea midline, no thyromegaly Respiratory: normal respiratory effort, lungs clear to auscultation Tenderness noted over costochondral junction on the left side Cardiovascular: Rate/Rhythm: regular rate and regular rhythm Heart Sounds: normal S1 and normal S2 Gastrointestinal (Abdomen): normal bowel sounds, soft, nontender, no hepatosplenomegaly Neurologic: PERRL, EOMI, accommodation nl, no face palsy, no dysarthria Principal Diagnosis Discharge Information Discharge Diagnosis Atypical Chest Pain Discharge Goals Decrease discomfort,Improve disease control, Improve function Discharge Activity Limitations Resume your previous activity Discharge Data Allergies Allergy/AdvReac Type Severity Reaction Status Date / Time ibuprofen AdvReac Mild NAUSEA AND Verified 06/01/18 17:11 VOMITING Consultations 06/01/18 19:04 ED Decision to Admit Stat Procedures Performed CXR: No active disease in the chest. Hospital Course (1) Atypical chest pain: DD: costochondritis, GERD EKG: No signs of Ischemia CXR:No active disease in the chest. Troponin X 3: Negative Stress Test: Nonischemic Exercise Stress ECHO May need follow up with Cardiology as outpatient if symptoms do not resolve (2) GERD (gastroesophageal reflux disease): H/O GERD Continue Protonix (3) Hypertension: controlled Continue home meds (4) Major depressive disorder: Continue bupropion, Trazadone H/O IBS: Continue Dicyclomine H/O Rosacea: On Doxycycline DVT Px: SCDs Disposition: Plan to discharge home today Total Time Total Time Spent Total Time Spent (In Minutes): 25 minutes Discharge Plan Discharge Items Patient Disposition: Home - Self-Care Reason For Visit: ATYPICAL CHEST PAIN Discharge Diagnosis: Atypical Chest Pain Discharge Goals: Decrease discomfort, Improve disease control and Improve function Activity: Resume your previous activity Exercise/Sports: Gradually increase as tolerated Non-emergency contact: Primary Care Provider Call non-emergency contact if: you have any medication questions, your symptoms worsen, your pain is not controlled, your pain is worsening, your pain is unusual for you, your pain is concerning for you and you have a fever Follow-up/Referrals: Christel Wakefield DO [Primary Care Provider] - Diet: Heart Healthy Addtl Provider Instructions: Follow up with your PCP on at 10:55AM Consider follow up with your [employer] if your symptoms reoccur or worsen for a possible Zio Patch for Cardiac Monitoring Seek immediate medical attention if your symptoms reoccur or worsen Prescriptions: New famotidine [Pepcid] 20 mg tablet 20 mg PO HS Qty: 30 RF: 0 Continued cyclobenzaprine 10 mg tablet 10 mg PO HS PRN (Reason: Muscle Spasm) RF: 0 doxycycline hyclate 100 mg capsule 100 mg PO QAM RF: 0 trazodone 50 mg Tablet 50 mg PO HS PRN (Reason: Sleep) RF: 0 lisinopril-hydrochlorothiazide 20-12.5 mg tablet 1 tab PO DAILY RF: 0 pantoprazole 20 mg tablet,delayed release (DR/EC) 20 mg PO QAM RF: 0 dicyclomine 10 mg capsule 10 mg PO QAM RF: 0 Excedrin Migraine 250-250-65 mg Tablet 2 tab PO Q6H PRN (Reason: Migraine Headache) RF: 0 bupropion HCl 150 mg tablet extended release 24 hr 150 mg PO QAM RF: 0 Stand-Alone Forms: [facility] Discharge Orders: Discharge Order (Routine); Ordered 06/02/18 Ordered By: Sebastián Morales Admission Data Admit Date/Time: 06/01/18 19:20 Attending Provider: Sebastián Morales Admit Provider: Gia Pickard Primary Care Provider: Christel Wakefield Other Providers: Gia Pickard Service: Telemetry Other Interventions: Discharge Summary Assessment (RN) Last Done: 06/02/18 11:37 DC Date/Time DO NOT enter until pt leaves facility: 06/02/18 12:00
== END 2018-06-02 12:00 | disposition home or self-care (01) ==
LOC: 2S 15:42 → ED 15:42 → 2S 20:37

== ENCOUNTER 2019-05-29 11:58 | Observation (INO) ==
[2019-05-29] MEDS ORDERED: LORazepam 0.5 MG/1 ML VIAL IV STA (12:07)
[2019-05-29 12:23] LABS: Basophils # (auto) 0.04 K/uL (0-0.2); Basophils % (auto) 0.8 %; Eosinophils # (auto) 0.09 K/uL (0-0.5); Eosinophils % (auto) 1.7 %; Hematocrit (blood only) 44.1 % (37-47); Hemoglobin 15.3 g/dL (12.0-16.0); Lymphocytes # (auto) 1.87 K/uL (1.2-3.4); Lymphocytes % (auto) 35.5 %; Mean Corpuscular Hemoglobin 32.8 pg (25-34); Mean Corpuscular Hgb Conc 34.7 g/dL (32-36); Mean Corpuscular Volume 94.6 fL (80-100); Monocytes # (auto) 0.41 K/uL (0.11-0.59); Monocytes % (auto) 7.8 %; Neutrophils # (auto) 2.86 K/uL (1.4-6.5); Neutrophils % (auto) 54.2 %; Platelet Count 303 K/uL (130-400); RDW Coefficient of Variation 13.1 % (11.5-14.5); RDW Standard Deviation 44.6 fL (36.4-46.3); Red Blood Count 4.66 M/uL (4.2-5.4); White Blood Count 5.27 K/uL (4.8-10.8)
--- NOTE | 2019-05-29 12:25 | Emergency Department Note ---
History of Present Illness General Chief complaint: Hypertension Stated complaint: HIGH BLOOD PRESSURE Time Seen by Provider: 05/29/19 12:00 History of Present Illness Provider complaint: Hypertension and dizziness Maximum Pain Intensity: 7 Male with a history of hypertension presents with hypertension and dizziness. Patient reports her dizziness began today when she woke up. She reported headache yesterday. She also reported chest pain yesterday. Patient reports no chest pain at this time. 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 She states she feels like she might pass out. She denies any shortness of breath. No cough, hemoptysis. She does not report any recent travel. No exogenous hormone usage. She also does report a runny nose. Patient does have a strong family history of cardiac disease, her father having significant heart disease and congestive heart failure. Home Medications Home Medications Medication Instructions Recorded Confirmed Type Excedrin Migraine 2 tab PO Q6H PRN 06/01/18 05/29/19 History cyclobenzaprine 10 mg PO HS PRN 06/01/18 05/29/19 History lisinopril-hydrochlorothiazide 1 tab PO QAM 06/01/18 05/29/19 History pantoprazole [Protonix] 20 mg PO QAM 06/01/18 05/29/19 History trazodone 50 mg PO HS PRN 06/01/18 05/29/19 History metronidazole 0.75 % topical cream 1 applic TOPICAL DIRECTED PRN 11/24/18 05/29/19 History #1 gm multivitamin 1 tab PO QAM 11/24/18 05/29/19 History sulfacetamide sodium-sulfur 8 %-4 1 applic TOPICAL DIRECTED PRN 11/24/18 05/29/19 History % topical suspension #1 ml valacyclovir 500 mg tablet 500 mg PO DIRECTED PRN tab 11/24/18 05/29/19 History bupropion HCl 300 mg 24 hr tablet, 300 mg PO QAM 01/29/19 05/29/19 History extended release loratadine 10 mg tablet 10 mg PO QAM 01/29/19 05/29/19 History acetaminophen [Tylenol Extra 500 mg PO Q6H PRN 05/29/19 05/29/19 History Strength] gentamicin 1 applic TOPICAL DIRECTED PRN 05/29/19 05/29/19 History minocycline 100 mg PO DIRECTED PRN 05/29/19 05/29/19 History Allergies Allergy/AdvReac Type Severity Reaction Status Date / Time wheat Allergy Verified 05/29/19 12:57 ibuprofen AdvReac Mild NAUSEA AND Verified 05/29/19 12:57 VOMITING Past Med/Surg History Medical History Benign paroxysmal positional vertigo PADMINI (generalized anxiety disorder) GERD (gastroesophageal reflux disease) Hypertension IBS (irritable bowel syndrome) Major depressive disorder Recurrent herpes labialis Rosacea Surgical History H/O total hysterectomy bilateral salpingectomy Hx of cholecystectomy Status post osteotomy left knee Family History Grandmother (Maternal) Breast cancer Grandmother (Paternal) Breast cancer Uterine cancer Stroke Headache, migraine Father Diabetes Hypertension COPD (chronic obstructive pulmonary disease) Kidney disease CHF (congestive heart failure) Fibromyalgia Mother Hypertension Fibromyalgia Kidney disease COPD (chronic obstructive pulmonary disease) CHF (congestive heart failure) Brother JRA (juvenile rheumatoid arthritis) Grandfather (Maternal) COPD (chronic obstructive pulmonary disease) Lung cancer Hypertension Social History Preferred Language: Maldivian Communication Ability: Effective 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 Beliefs That Will Affect Care: Shinto Shinto Beliefs: DENOMINATIONAL marital status: Current Living Situation: Spouse and Family current occupational status: employed Other Information That Helps Us Care for You: No Feels Safe at Home: Yes Smoking Status: Former smoker Hx Alcohol Use: Yes Alcohol type: beer and wine Hx Substance Use: No Review of Systems A total of 10 systems reviewed and were otherwise negative Physical Exam Vital Signs Vital Signs - 24 hr 05/29/19 12:01 05/29/19 12:31 05/29/19 12:52 Temperature 36.8 C Temperature Source Oral Pulse Rate 80 74 Pulse Rate [Apical] 80 Pulse Rate from SpO2 Sensor 76 82 Pulse Rhythm Regular Pulse Rhythm [Apical] Regular Pulse Strength Normal Pulse Strength [Apical] Normal Respiratory Rate 20 17 Respiratory Effort / Characteristics Non-Labored Spontaneous Respiratory Depth Normal Respiratory Pattern Regular Blood Pressure 175/107 H 147/90 H 139/108 H Blood Pressure [Left Arm] 175/103 H Blood Pressure Mean 129 129 112 Blood Pressure Mean [Left Arm] 127 Blood Pressure Position Lying Blood Pressure Position [Left Arm] Lying Pulse Oximetry 95 95 97 Oxygen Delivery Method Room Air Sepsis Recent Fever Within 48 Hours No Sepsis New/Unexplained Change in Mental Status No Sepsis Action Taken by Nursing No Action Required 05/29/19 12:53 05/29/19 13:00 05/29/19 13:15 Temperature Temperature Source Pulse Rate 77 78 Pulse Rate [Apical] Pulse Rate from SpO2 Sensor 74 78 75 Pulse Rhythm Pulse Rhythm [Apical] Pulse Strength Pulse Strength [Apical] Respiratory Rate 18 16 Respiratory Effort / Characteristics Respiratory Depth Respiratory Pattern Blood Pressure 140/91 Blood Pressure [Left Arm] Blood Pressure Mean 106 Blood Pressure Mean [Left Arm] Blood Pressure Position Blood Pressure Position [Left Arm] Pulse Oximetry 96 96 96 Oxygen Delivery Method Sepsis Recent Fever Within 48 Hours Sepsis New/Unexplained Change in Mental Status Sepsis Action Taken by Nursing 05/29/19 13:30 05/29/19 14:05 05/29/19 14:38 Temperature Temperature Source Pulse Rate 69 77 74 Pulse Rate [Apical] Pulse Rate from SpO2 Sensor 71 71 71 Pulse Rhythm Pulse Rhythm [Apical] Pulse Strength Pulse Strength [Apical] Respiratory Rate 14 14 14 Respiratory Effort / Characteristics Respiratory Depth Respiratory Pattern Blood Pressure 129/101 H 132/99 114/78 Blood Pressure [Left Arm] Blood Pressure Mean 110 110 90 Blood Pressure Mean [Left Arm] Blood Pressure Position Blood Pressure Position [Left Arm] Pulse Oximetry 96 96 96 Oxygen Delivery Method Room Air Room Air Room Air Sepsis Recent Fever Within 48 Hours Sepsis New/Unexplained Change in Mental Status Sepsis Action Taken by Nursing 05/29/19 15:49 Temperature Temperature Source Pulse Rate 76 Pulse Rate [Apical] Pulse Rate from SpO2 Sensor Pulse Rhythm Pulse Rhythm [Apical] Pulse Strength Pulse Strength [Apical] Respiratory Rate 20 Respiratory Effort / Characteristics Respiratory Depth Respiratory Pattern Blood Pressure 139/93 Blood Pressure [Left Arm] Blood Pressure Mean 108 Blood Pressure Mean [Left Arm] Blood Pressure Position Blood Pressure Position [Left Arm] Pulse Oximetry 99 Oxygen Delivery Method Room Air Sepsis Recent Fever Within 48 Hours Sepsis New/Unexplained Change in Mental Status Sepsis Action Taken by Nursing Physical Exam GENERAL: She is oriented to person, place, and time. She appears well-developed and well-nourished. She does not appear distressed. HENT: Exam performed. -Head: Normocephalic and atraumatic. -Right Ear: External ear normal. No mastoid tenderness. -Left Ear: External ear normal. No mastoid tenderness. -Mouth/Throat: The oropharynx is clear and moist. No trismus in the jaw. No dental abscesses or uvula swelling. No oropharyngeal exudate or tonsillar abscesses. EYES: Conjunctivae and EOM are normal. Pupils are equal, round, and reactive to light. Right eye exhibits no discharge. Left eye exhibits no discharge. No scleral icterus. NECK: Normal range of motion. Neck supple. No JVD present. No spinous process tenderness present. No carotid bruit present. No rigidity. No tracheal deviation and normal range of motion present. No Brudzinski's sign and no Kernig's sign n oted. CV: Normal rate, regular rhythm, normal heart sounds and intact distal pulses. There is no peripheral edema. Palpable radial pulses bue. PULM/CHEST: Effort normal and breath sounds normal. No respiratory distress. No stridor. She has no wheezes. She has no rales. -Chest Wall: She exhibits no tenderness. ABD: The abdomen is soft. Bowel sounds are normal. She has no distension. No mass is present. There is no tenderness. There is no rebound, no guarding, no Abbott's sign and no tenderness at McBurney's point. Rovsig negative MUSC/SKEL: Normal range of motion. There is no peripheral edema, tenderness or deformity. LYMPH: No cervical adenopathy. NEURO: She is alert and oriented to person, place, and time. She has normal strength. No cranial nerve deficit or sensory deficit. Coordination and gait normal. GCS eye subscore is 4. GCS verbal subscore is 5. GCS motor subscore is 6. Cerebellar tests wnl. SKIN: Skin is warm and dry. She is not diaphoretic. PSYCH: She has a normal mood and affect. Behavior is normal. Judgment and thought content normal. Course Course 1201: The patient was evaluated in room A3. A complete history and physical exam was performed. Cardiac monitoring: An order was placed for continuous cardiac monitoring. The monitor shows a rate of 80 with sinus rhythm 1318: Vital signs stable. Blood pressure improved. Labs within normal limits with exception of a potassium of 3.1. Potassium was replaced in the emergency department. Troponin is 0.021. Still within normal limits however higher than it has been in the past. Patient reports no chest pain this time. Given the patient's age, her hypertension, and her strong family history of heart disease, delta troponin will be conducted. She does report some intermittent shortness of breath following in the emergency department however she states these of only lasted for a few seconds and have resolved on their own. 1610: Vital signs stable. Patient reports no chest pain at this time. Patient's delta troponin is 0.025, still within normal limits however trending upwards. I discussed the case with Dr. Nj, [facility] cardiology. He states that the patient did have a stress test in May 2018 which showed an echo at baseline normal, however given her age, symptoms, hypertension, as well as her strong family history of cardiac problems, he recommends that the patient be kept in the hospital overnight and he will evaluate her for stress test tomorrow. I discussed this with the patient and her family at bedside who are agreeable. [facility] hospitalist team was contacted. Administered Medications Discontinued Medications Lorazepam (Ativan) 0.5 mg in 1 mls @ 1 mls/min IV NOW STA Stop: 05/29/19 12:08 Last Admin: 05/29/19 12:23 Dose: 1 mls/min Documented by: [id number] Potassium Chloride (Klor-Con M10) 40 meq PO NOW STA Stop: 05/29/19 13:19 Last Admin: 05/29/19 13:20 Dose: 40 meq Documented by: [id number] Medical Decision Making Laboratory Data Result diagrams: 05/29/19 12:06 05/29/19 12:06 Lab Results 05/29/19 05/29/19 05/29/19 Range/Units 12:06 12:06 12:06 WBC 5.27 (4.8-10.8) K/uL RBC 4.66 (4.2-5.4) M/uL Hgb 15.3 (12.0-16.0) g/dL Hct 44.1 (37-47) % MCV 94.6 (80-100) fL MCH 32.8 (25-34) pg MCHC 34.7 (32-36) g/dL RDW Std Deviation 44.6 (36.4-46.3) fL RDW Coeff of Priyanka 13.1 (11.5-14.5) % Plt Count 303 (130-400) K/uL MPV 11.0 H (7.4-10.4) fL Immature Gran % (Auto) 0.0 % Neut % (Auto) 54.2 % Lymph % (Auto) 35.5 % [place] % (Auto) 7.8 % Eos % (Auto) 1.7 % Baso % (Auto) 0.8 % Immature Gran # (Auto) 0.00 (0.00-0.02) K/uL Neut # (Auto) 2.86 (1.4-6.5) K/uL Lymph # (Auto) 1.87 (1.2-3.4) K/uL [place] # (Auto) 0.41 (0.11-0.59) K/uL Eos # (Auto) 0.09 (0-0.5) K/uL Baso # (Auto) 0.04 (0-0.2) K/uL PT 11.0 (9.0-12.0) Seconds INR 1.0 (0.9-1.1) APTT 29.2 (21.0-31.0) Seconds PTT Ratio 1.0 Sodium 138 (136-145) mmol/L Potassium 3.1 L (3.5-5.1) mmol/L Chloride 101 (98-107) mmol/L Carbon Dioxide 29 (21-32) mmol/L Anion Gap 8.0 (3-11) BUN 13 (7-18) mg/dl Creatinine 1.05 (0.6-1.2) mg/dl Est Cr Clr Drug Dosing 76.1 ml/min Est GFR ( Amer) 72.7 Est GFR (Non-Af Amer) 62.8 BUN/Creatinine Ratio 12.6 (10-20) Glucose 102 H (70-99) mg/dl Calcium 9.7 (8.5-10.1) mg/dl Troponin I 0.021 (0-0.045) ng/ml Lipase 220 (73-393) U/L Influenza Type A (PCR) (Neg) Influenza Type B (PCR) (Neg) 05/29/19 05/29/19 Range/Units 13:25 15:00 WBC (4.8-10.8) K/uL RBC (4.2-5.4) M/uL Hgb (12.0-16.0) g/dL Hct (37-47) % MCV (80-100) fL MCH (25-34) pg MCHC (32-36) g/dL RDW Std Deviation (36.4-46.3) fL RDW Coeff of Priyanka (11.5-14.5) % Plt Count (130-400) K/uL MPV (7.4-10.4) fL Immature Gran % (Auto) % Neut % (Auto) % Lymph % (Auto) % [place] % (Auto) % Eos % (Auto) % Baso % (Auto) % Immature Gran # (Auto) (0.00-0.02) K/uL Neut # (Auto) (1.4-6.5) K/uL Lymph # (Auto) (1.2-3.4) K/uL [place] # (Auto) (0.11-0.59) K/uL Eos # (Auto) (0-0.5) K/uL Baso # (Auto) (0-0.2) K/uL PT (9.0-12.0) Seconds INR (0.9-1.1) APTT (21.0-31.0) Seconds PTT Ratio Sodium (136-145) mmol/L Potassium (3.5-5.1) mmol/L Chloride (98-107) mmol/L Carbon Dioxide (21-32) mmol/L Anion Gap (3-11) BUN (7-18) mg/dl Creatinine (0.6-1.2) mg/dl Est Cr Clr Drug Dosing ml/min Est GFR ( Amer) Est GFR (Non-Af Amer) BUN/Creatinine Ratio (10-20) Glucose (70-99) mg/dl Calcium (8.5-10.1) mg/dl Troponin I 0.025 (0-0.045) ng/ml Lipase (73-393) U/L Influenza Type A (PCR) Neg for Influ A (Neg) Influenza Type B (PCR) Neg for Influ B (Neg) ECG Data Rate (beats per minute): 74 Rhythm: + normal sinus ECG Intervals/blocks: + Normal QRS, + Normal SD and + Normal QT-c ECG ST segments: + Normal ST segments Additional Comments: Sinus Rhythym. Rate 74. SD QRS and Qtc intervals within normal limits. No ST elevation or ST depression [facility] Narrative 1201: The patient was evaluated in room A3. A complete history and physical exam was performed. Cardiac monitoring: An order was placed for continuous cardiac monitoring. The monitor shows a rate of 80 with sinus rhythm 1318: Vital signs stable. Blood pressure improved. Labs within normal limits with exception of a potassium of 3.1. Potassium was replaced in the emergency department. Troponin is 0.021. Still within normal limits however higher than it has been in the past. Patient reports no chest pain this time. Given the patient's age, her hypertension, and her strong family history of heart disease, delta troponin will be conducted. She does report some intermittent shortness of breath following in the emergency department however she states these of only lasted for a few seconds and have resolved on their own. 1610: Vital signs stable. Patient reports no chest pain at this time. Patient's delta troponin is 0.025, still within normal limits however trending upwards. I discussed the case with Dr. Nj, [facility] cardiology. He states that the patient did have a stress test in May 2018 which showed an echo at baseline normal, however given her age, symptoms, hypertension, as well as her strong family history of cardiac problems, he recommends that the patient be kept in the hospital overnight and he will evaluate her for stress test tomorrow. I discussed this with the patient and her family at bedside who are agreeable. [facility] hospitalist team was contacted. Impression & Plan Chest pain, Hypertension, Acute dyspnea Discharge Plan Visit Data Chief Complaint: Hypertension Stated Complaint: HIGH BLOOD PRESSURE ED Provider: Sonu Banuelos Discharge Problem: Chest pain, Hypertension, Acute dyspnea Forms Stand Alone Forms: My [facility] Prescriptions Prescriptions: No Action valacyclovir 500 mg tablet 500 mg PO DIRECTED PRN (Reason: sores) RF: 0 multivitamin [Daily Multi-Vitamin] tablet 1 tab PO QAM RF: 0 sulfacetamide sodium-sulfur 8-4 % suspension 1 applic topical DIRECTED PRN (Reason: rosacea) Qty: 1 RF: 0 metronidazole 0.75 % cream 1 applic topical DIRECTED PRN (Reason: rosacea) Qty: 1 RF: 0 bupropion HCl [Wellbutrin XL] 300 mg tablet extended release 24 hr 300 mg PO QAM RF: 0 loratadine [Claritin] 10 mg tablet 10 mg PO QAM RF: 0 minocycline 100 mg capsule 100 mg PO DIRECTED PRN (Reason: rosacea) RF: 0 gentamicin 0.1 % cream 1 applic topical DIRECTED PRN (Reason: soreness) RF: 0 acetaminophen [Tylenol Extra Strength] 500 mg Tablet 500 mg PO Q6H PRN (Reason: Pain) RF: 0 cyclobenzaprine 10 mg tablet 10 mg PO HS PRN (Reason: Muscle Spasm) RF: 0 trazodone 50 mg Tablet 50 mg PO HS PRN (Reason: Sleep) RF: 0 lisinopril-hydrochlorothiazide 20-12.5 mg tablet 1 tab PO QAM RF: 0 pantoprazole [Protonix] 20 mg tablet,delayed release (DR/EC) 20 mg PO QAM RF: 0 Excedrin Migraine 250-250-65 mg Tablet 2 tab PO Q6H PRN (Reason: Migraine Headache) RF: 0 Referrals Referrals: Lilia Contreras PA-C [Primary Care Provider] - Discharge Problem: Chest pain Qualifiers: Chest pain type: unspecified Qualified Code(s): R07.9 - Chest pain, unspecified Hypertension Qualifiers: Hypertension type: unspecified Qualified Code(s): I10 - Essential (primary) hypertension
[2019-05-29 12:35] LABS: BUN Creatinine Ratio 12.6 (10-20); Calcium 9.7 mg/dl (8.5-10.1); Creatinine Clr Calc Pharmacy 76.1 ml/min; Est GFR (African American) 72.7; Est GFR (Non-African American) 62.8; Partial Thromboplastin Time 29.2 Seconds (21.0-31.0); Potassium 3.1 mmol/L (3.5-5.1)
--- NOTE | 2019-05-29 12:37 | CT Scan Report ---
CT head/brain wo con CT DOSE: 537.48 mGy.cm HISTORY: Headache basilio TECHNIQUE: Multiaxial CT images of the head were performed without the use of intravenous contrast. A dose lowering technique was utilized adhering to the principles of ALARA. Comparison: 05/03/2017 Findings: The paranasal sinuses and mastoid air cells are clear. The calvarium and skull base are int act. The ventricles and sulci are within normal limits. There is no mass, hematoma, midline shift, or acute infarct. Impression: No acute intracranial abnormality. ACT 112: Negative or not required by law. The above report was generated using voice recognition software. It may contain grammatical, syntax or spelling errors. Electronically signed by: Nayan Catherine M.D. 05/29/2019 12:35 PM
[2019-05-29 12:40] LABS: Troponin I 0.021 ng/ml (0-0.045)
--- NOTE | 2019-05-29 12:56 | XRay Report ---
XR chest 2V PA/lateral CLINICAL HISTORY: Chest Pain dyspnea COMPARISON STUDY: 06/01/2018 FINDINGS: The bones soft tissues and hemidiaphragms are normal. The cardiomediastinal silhouette is n ormal. The lungs are clear. The pulmonary vasculature is normal. IMPRESSION: Negative chest. ACT 112: Negative or not required by law. The above report was generated using voice recognition software. It may contain grammatical, syntax or spelling errors. Electronically signed by: Nayan Catherine M.D. 05/29/2019 12:55 PM
[2019-05-29] MEDS ORDERED: POTASSIUM CHLORIDE 10 MEQ TABCR PO STA (13:18)
[2019-05-29 14:12] LABS: Influenza A virus by PCR Neg for Influ A (Neg); Influenza B virus by PCR Neg for Influ B (Neg)
--- NOTE | 2019-05-29 17:55 | Electrocardiogram Report ---
Test Reason : Blood Pressure : / mmHG Vent. Rate : 074 BPM Atrial Rate : 074 BPM P-R Int : 156 ms QRS Dur : 090 ms QT Int : 434 ms P-R-T Axes : 046 -07 053 degrees QTc Int : 481 ms Normal sinus rhythm Left atrial enlargement Poor R wave progression, consider anterior LA vs. lead placement vs. LVH Abnormal ECG When compared with ECG of 01-JUN-2018 17:56, No significant change was found Confirmed by Nathan De Jesus ([id number]) on 05/29/2019 5:54:39 PM Referred By: REFERRED SELF Confirmed By:Nathan De Jesus
[2019-05-29] MEDS ORDERED: SODIUM CHLORIDE 0.65% NA SOLN 45 ML (OCEAN) PRN (18:04)
--- NOTE | 2019-05-29 18:06 | History & Physical Report ---
Date of Service May 29, 2019 Assessment & Plan (1) Dizziness: 49 years old female with past medical history of hypertension,nausea, benign paroxysmal positional vertigo, major depression, general anxiety, insomnia, presented to the ER with chief complaint of dizziness associated with elevated blood pressure. Possible related nasal congestion that triggers her Dizziness CT head showed no acute intracranial abnormality Will do Meclizine PRN Fall precaution Chest pain Developed Chest pain last night Pt had a family hx of CAD Troponin on admission 0.021-->0.025 Had a negative stress echo done on 06/02 EKG showed no ischemic changes ER physician called [employer] studies professor that recommended to observe for tonight for possible stress test in am Will get an echo Will trend troponin Will repeat EKG in am Cardiology consult Will continue monitor in ER Hypertension Might be related to dizziness and hospital setting BP stable today Continue Lisinopril 20mg daily Will resume HCTZ in am Continue monitor BP Hypokalemia Possible related to HCTZ and probably diet related K replaced Will monitor BMP Fatigue Will check TSH Advised pt to stay active Obesity BMI 36 Pt is doing a Ketogenic diet Counseling pt about exercise Anxiety /depression Continue Wellbutrin DVT px pt is ambulates Code Status Full code History of Present Illness Chief Complaint: Dizziness Primary Care Provider: Lilia Contreras PA-C 49 years old female with past medical history of hypertension, nausea, benign paroxysmal positional vertigo, major depression, general anxiety, insomnia, presented to the ER with chief complaint of dizziness associated with elevated blood pressure. Patient said last night while sitting on the couch she developed chest pain associated with shortness of breath. She said the episodes last for few minutes then she went to sleep. She said when she woke up today she felt a little dizzy. But she said that when she got to work dizziness get worse to the point where she felt like she was going to pass out. Patient said that dizziness occurs whenever she turned her head too fast. She said that she does not have the feeling where the room is spinning around her. She said that her BP was checked that was elevated at 175/107. Patient said that she fell congested with runny nose today. Patient said that she has been feeling very tired with low energy lately. She denies any recent traveling. 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 Currently denies any chest pain, palpitation, fever and shortness of breath. In the ER lab was done showed troponin 0.02, and the ER physician call cardiology.recommend to keep the patient for observation for possible stress test tomorrow. Allergies Allergy/AdvReac Type Severity Reaction Status Date / Time wheat Allergy Verified 05/29/19 12:57 ibuprofen AdvReac Mild NAUSEA AND Verified 05/29/19 12:57 VOMITING Home Medications Home Medications Medication Instructions Recorded Confirmed Type lisinopril-hydrochlorothiazide 1 tab PO QAM 06/01/18 05/29/19 History pantoprazole [Protonix] 20 mg PO QAM 06/01/18 05/29/19 History metronidazole 0.75 % topical cream 1 applic TOPICAL DIRECTED PRN 11/24/18 05/29/19 History #1 gm multivitamin 1 tab PO QAM 11/24/18 05/29/19 History valacyclovir 500 mg tablet 500 mg PO DIRECTED PRN tab 11/24/18 05/29/19 History bupropion HCl 300 mg 24 hr tablet, 300 mg PO QAM 01/29/19 05/29/19 History extended release acetaminophen [Tylenol Extra 500 mg PO Q6H PRN 05/29/19 05/29/19 History Strength] cholecalciferol (vitamin D3) 50,000 unit PO WK 05/29/19 05/29/19 History minocycline 100 mg PO DIRECTED PRN 05/29/19 05/29/19 History Past Med/Surg History Medical History Benign paroxysmal positional vertigo PADMINI (generalized anxiety disorder) GERD (gastroesophageal reflux disease) Hypertension IBS (irritable bowel syndrome) Major depressive disorder Recurrent herpes labialis Rosacea Surgical History H/O total hysterectomy bilateral salpingectomy Hx of cholecystectomy Status post osteotomy left knee Family History Grandmother (Maternal) Breast cancer Grandmother (Paternal) Breast cancer Uterine cancer Stroke Headache, migraine Father Diabetes Hypertension COPD (chronic obstructive pulmonary disease) Kidney disease CHF (congestive heart failure) Fibromyalgia Mother Hypertension Fibromyalgia Kidney disease COPD (chronic obstructive pulmonary disease) CHF (congestive heart failure) Brother JRA (juvenile rheumatoid arthritis) Grandfather (Maternal) COPD (chronic obstructive pulmonary disease) Lung cancer Hypertension Social History Preferred Language: Mexican Communication Ability: Effective Campus President Required: No Beliefs That Will Affect Care: Shinto Shinto Beliefs: SCIENTOLOGIST marital status: Current Living Situation: Spouse and Family current occupational status: employed Other Information That Helps Us Care for You: No Feels Safe at Home: Yes Smoking Status: Former smoker Hx Alcohol Use: Yes Alcohol type: beer and wine Hx Substance Use: No Review of Systems Review of Systems: All systems reviewed & are unremarkable except as noted in HPI & below Physical Exam Physical Exam: General- No acute distress Head- atraumatic Eyes- PERRL, EOMI, ENT- mild swelling of the turbinate in right nostril, no erythema/pus in the ear canal Neck- supple, no JVD Lungs- clear to auscultation Heart- regular rhythm; no murmur Abdomen- normal bowel sounds, soft, nontender Extremities- no calf tenderness Neuro- alert, oriented x 3; PERRL, EOMI; no facial palsy; no dysarthria Skin- warm & dry Results & Data Vital Signs (Past 12 Hours) Vital Signs Temp Pulse Pulse Resp BP BP Pulse Ox 05/29/19 17:00 76 20 145/90 H 97 05/29/19 15:49 76 20 139/93 99 05/29/19 14:38 74 14 114/78 96 05/29/19 14:05 77 14 132/99 96 05/29/19 13:30 69 14 129/101 H 96 05/29/19 13:15 78 16 96 05/29/19 13:00 77 18 140/91 96 05/29/19 12:53 96 05/29/19 12:52 139/108 H 97 05/29/19 12:31 74 17 147/90 H 95 05/29/19 12:01 36.8 C 80 80 20 175/107 H 175/103 H 95 Diagnostic Findings XR chest 2V PA/lateral CLINICAL HISTORY: Chest Pain dyspnea COMPARISON STUDY: 06/01/2018 FINDINGS: The bones soft tissues and hemidiaphragms are normal. The cardiomediastinal silhouette is normal. The lungs are clear. The pulmonary vasculature is normal. IMPRESSION: Negative chest. ACT 112: Negative or not required by law. The above report was generated using voice recognition software. It may contain grammatical, syntax or spelling errors. Electronically signed by: Nayan Catherine M.D. 05/29/2019 12:55 PM Dictated: 05/29/19 1255 Transcribed: 05/29/[address] head/brain wo con CT DOSE: 537.48 mGy.cm HISTORY: Headache basilio TECHNIQUE: Multiaxial CT images of the head were performed without the use of intravenous contrast. A dose lowering technique was utilized adhering to the principles of ALARA. Comparison: 05/03/2017 Findings: The paranasal sinuses and mastoid air cells are clear. The calvarium and skull base are intact. The ventricles and sulci are within normal limits. There is no mass, hematoma, midline shift, or acute infarct. Impression: No acute intracranial abnormality. ACT 112: Negative or not required by law. The above report was generated using voice recognition software. It may contain grammatical, syntax or spelling errors. Electronically signed by: Nayan Catherine M.D. 05/29/2019 12:35 PM Dictated: 05/29/19 1235 Transcribed: 05/29/19 1235
[2019-05-29] MEDS ORDERED: SODIUM CHLORIDE 0.9% 500 ML IV SCH (19:00)
[2019-05-29] MEDS ORDERED: ACETAMINOPHEN 500 MG TAB PO PRN (19:13)
[2019-05-29 21:38] LABS: BUN Creatinine Ratio 13.3 (10-20); Calcium 8.9 mg/dl (8.5-10.1); Creatinine Clr Calc Pharmacy 89.8 ml/min; Est GFR (African American) 88.8; Est GFR (Non-African American) 76.6; Potassium 3.7 mmol/L (3.5-5.1); Troponin I 0.025 ng/ml (0-0.045)
[2019-05-30 06:49] LABS: BUN Creatinine Ratio 15.4 (10-20); Calcium 9.4 mg/dl (8.5-10.1); Creatinine Clr Calc Pharmacy 96.3 ml/min; Est GFR (African American) 96.6; Est GFR (Non-African American) 83.4; Potassium 3.7 mmol/L (3.5-5.1)
[2019-05-30] MEDS ORDERED: PANTOprazole 40 MG TAB PO SCH (09:00)
[2019-05-30] MEDS ORDERED: MULTIVITAMIN TAB PO SCH (09:00)
[2019-05-30] MEDS ORDERED: BuPROPion XL 300 MG TABCR PO SCH (09:00)
[2019-05-30] MEDS ORDERED: lisinopriL 20 MG TAB PO SCH (09:00)
--- NOTE | 2019-05-30 10:30 | Cardiology Consultation ---
Date of Consultation May 30, 2019 Assessment & Plan (1) Chest pain: (2) Dizziness: (3) Hypertension: EKG performed 05/29/2019 at 12:10 PM revealed normal sinus rhythm 74 bpm, although there is noted poor R wave progression, it was unchanged compared to her prior EKG dated 06/01/2018. She previously been assessed for chest discomfort year ago on 06/02/2018 and had a nonischemic response to stress echocardiography exercising for 7 minutes and 33 seconds. At this time her blood pressure is improved. Telemetry negative. I recommend that we proceed with an exercise stress echocardiogram for further risk stratification given her transient chest discomfort and family history. This wi ll be helpful also in terms of assessing her blood pressure response to exercise. Complete resting echocardiogram will be performed in advance of the study. Patient was agreeable to this plan. History of Present Illness Attending Physician: Ricardo Chun MD History of Present Illness Viola Araujo is a 49 year old female seen in cardiology consultation per the request of Dr Chun for the evaluation of dizziness as well as transient chest pain and shortness of breath. 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 She notes that 2 evenings ago she was feeling well in her normal state of health when she had a sudden onset of transient chest discomfort and shortness of breath. It resolved on its own she went to bed and felt well when she got up yesterday. She came to work, and she states that she was not under any stress at work, and was talking to colleagues, when she had an episode of dizziness. A colleague took her blood pressure and it was found to be elevated at 175/107 which is unusually high for her. She was assessed in the emergency room. Her EKG revealed sinus rhythm without any significant repolarization changes. She has had serial troponin measurements at this point, which were not within the range of being elevated, but were also not detectable with readings of 0.021, 0.025, and 0.025 NG per mL (normal range 0-0.045). Her blood pressure subsequently trended toward normal. This morning she feels relatively well. Denies any chest discomfort, shortness of breath or palpitations. She does note ongoing sensation of a little bit of dizziness. Telemetry reveals sinus rhythm in the 60 bpm range. She has been on lisinopril/hydrochlorothiazide, at the same dose for years as an outpatient. I reviewed her outpatient blood pressure readings and they all have been well controlled recently. She states that she has been working on losing weight adhering to a low carbohydrate high protein diet and is lost 35 pounds recently intentionally. She is accompanied by her significant other at the bedside. Family History: She has a history of hypertension in her mother, and her father who is actually a patient of mine has a longstanding history of atrial fibrillation, cardiomyopathy, hypertension, and kidney disease Allergies Allergy/AdvReac Type Severity Reaction Status Date / Time wheat Allergy Verified 05/29/19 12:57 ibuprofen AdvReac Mild NAUSEA AND Verified 05/29/19 12:57 VOMITING Home Medications Home Medications Medication Instructions Recorded Confirmed Type lisinopril-hydrochlorothiazide 1 tab PO QAM 06/01/18 05/29/19 History pantoprazole [Protonix] 20 mg PO QAM 06/01/18 05/29/19 History metronidazole 0.75 % topical cream 1 applic TOPICAL DIRECTED PRN 11/24/18 05/29/19 History #1 gm multivitamin 1 tab PO QAM 11/24/18 05/29/19 History valacyclovir 500 mg tablet 500 mg PO DIRECTED PRN tab 11/24/18 05/29/19 History bupropion HCl 300 mg 24 hr tablet, 300 mg PO QAM 01/29/19 05/29/19 History extended release acetaminophen [Tylenol Extra 500 mg PO Q6H PRN 05/29/19 05/29/19 History Strength] cholecalciferol (vitamin D3) 50,000 unit PO WK 05/29/19 05/29/19 History minocycline 100 mg PO DIRECTED PRN 05/29/19 05/29/19 History Patient History Medical History Benign paroxysmal positional vertigo PADMINI (generalized anxiety disorder) GERD (gastroesophageal reflux disease) Hypertension IBS (irritable bowel syndrome) Major depressive disorder Recurrent herpes labialis Rosacea Surgical History H/O total hysterectomy bilateral salpingectomy Hx of cholecystectomy Status post osteotomy left knee Family History Grandmother (Maternal) Breast cancer Grandmother (Paternal) Breast cancer Uterine cancer Stroke Headache, migraine Father Diabetes Hypertension COPD (chronic obstructive pulmonary disease) Kidney disease CHF (congestive heart failure) Fibromyalgia Mother Hypertension Fibromyalgia Kidney disease COPD (chronic obstructive pulmonary disease) CHF (congestive heart failure) Brother JRA (juvenile rheumatoid arthritis) Grandfather (Maternal) COPD (chronic obstructive pulmonary disease) Lung cancer Hypertension Social History Preferred Language: Citizen Of [place] Communication Ability: Effective Gem Cutter Required: No Beliefs That Will Affect Care: Confucianism Confucianism Beliefs: TAOIST marital status: Current Living Situation: Spouse and Family current occupational status: employed Other Information That Helps Us Care for You: No Feels Safe at Home: Yes Smoking Status: Former smoker Hx Alcohol Use: Yes Alcohol type: beer and wine Hx Substance Use: No Review of Systems Review of Systems: All systems reviewed & are unremarkable except as noted in HPI & below Physical Exam Physical Exam: Temp Pulse Resp BP Pulse Ox 36.6 C 66 20 125/77 93 05/30/19 07:03 05/30/19 07:03 05/30/19 07:03 05/30/19 07:03 05/30/19 07:03 Constitutional: WD/WN, vitals as above Respiratory: normal respiratory effort, lungs clear to auscultation Cardiovascular: RRR, no murmur, no edema Gastrointestinal (Abdomen): normal bowel sounds, soft, nontender, no hepatosplenomegaly Skin: no rashes, warm and dry Neurologic: PERRL, EOMI, accommodation nl, no face palsy, no dysarthria Results & Data ([facility]) Vital Signs (Past 12 Hours) Vital Signs Temp Pulse Pulse Resp BP Pulse Ox 05/30/19 07:03 36.6 C 66 20 125/77 93 05/30/19 03:22 36.5 C 66 18 128/76 95 05/30/19 00:05 65 05/29/19 22:57 36.9 C 80 16 131/77 95 Laboratory Results Cardiac Enzymes 05/29/19 05/29/19 05/29/19 Range/Units 12:06 15:00 20:53 Troponin I 0.021 0.025 0.025 (0-0.045) ng/ml Coagulation 05/29/19 Range/Units 12:06 PT 11.0 (9.0-12.0) Seconds APTT 29.2 (21.0-31.0) Seconds CBC 05/29/19 Range/Units 12:06 WBC 5.27 (4.8-10.8) K/uL RBC 4.66 (4.2-5.4) M/uL Hgb 15.3 (12.0-16.0) g/dL Hct 44.1 (37-47) % Plt Count 303 (130-400) K/uL Neut # (Auto) 2.86 (1.4-6.5) K/uL Lymph # (Auto) 1.87 (1.2-3.4) K/uL Divide # (Auto) 0.41 (0.11-0.59) K/uL Eos # (Auto) 0.09 (0-0.5) K/uL Baso # (Auto) 0.04 (0-0.2) K/uL Comprehensive Metabolic Panel 05/29/19 05/29/19 05/30/19 Range/Units 12:06 20:53 05:51 Sodium 138 141 140 (136-145) mmol/L Potassium 3.1 L 3.7 D 3.7 (3.5-5.1) mmol/L Chloride 101 106 106 (98-107) mmol/L Carbon Dioxide 29 27 29 (21-32) mmol/L BUN 13 12 13 (7-18) mg/dl Creatinine 1.05 0.89 0.83 (0.6-1.2) mg/dl Glucose 102 H 106 H 80 (70-99) mg/dl Calcium 9.7 8.9 9.4 (8.5-10.1) mg/dl Intake and Output 05/29/19 05/30/19 05/30/19 22:59 06:59 14:59 Intake Total 350 / 850 500 / 850 Output Total 0 / 250 250 / 250 Balance 350 / 600 250 / 600 Intake: IV 500 / 500 Nss 500 ml @ 80 mls/hr IV . 500 / 500 Q6H15M [facility] Rx#:[id number] Oral 350 / 350 Output: Urine 250 / 250 Stool 0 / 0 Emesis 0 / 0 Other: # Unmeasured Voids 1 Weight 98.4 kg 98.4 kg (1) Chest pain Chest pain type: unspecified Qualified Code(s): R07.9 - Chest pain, unspecified (2) Hypertension Hypertension type: unspecified Qualified Code(s): I10 - Essential (primary) hypertension
[2019-05-30] MEDS ORDERED: POTASSIUM CHLORIDE 20 MEQ TABCR PO SCH (13:00)
--- NOTE | 2019-05-30 13:12 | Hospitalist Progress Note ---
Date of Service May 30, 2019 Assessment & Plan (1) Dizziness: 49 years old female with past medical history of hypertension,nausea, benign paroxysmal positional vertigo, major depression, general anxiety, insomnia, presented to the ER with chief complaint of dizziness associated with elevated blood pressure. Possible related nasal congestion that triggers her Dizziness CT head showed no acute intracranial abnormality Continue Meclizine PRN Fall precaution Stable Chest pain Developed Chest pain last night Pt had a family hx of CAD Troponin on admission 0.021-->0.025 Troponin x3 negative Had a negative stress echo done on 06/02 EKG showed no ischemic changes No arrhythmia on tele monitor Cardio on board Stress ECHO done showed no evidence ischemia ECHO exercise stress echocardiogram. Echo revealed normal LVEF and normal wall motion. OK from cardiology standpoint to discharge home Hypertension Might be related to dizziness and hospital setting BP elevated during exercise stress echo Cardiology recommended to increase Lisinopril/HCTZ latrell 20/25 mg Continue Monitor BP Check BMP in 1 week Hypokalemia Possible related to HCTZ and probably diet related K stable today Will add low dose of K supplement since HCTZ increase to 20mg Check BMP in 1 week Fatigue TSH WNL Advised pt to stay active Obesity BMI 36 Pt is doing a Ketogenic diet Counseling pt about exercise Anxiety /depression Continue Wellbutrin DVT px pt is ambulates Code Status Full code Disposition Discharge home today Admission and Anticipated Discharge Date Admission Date: May 29, 2019 Subjective Pt was seen and examined Sitting in bed with no distress with at bedside Pt said that she feels better She said that she does feel a little dizzy this morning She said that in the past she usually takes meclizine for the dizziness Denies any chest pain, palpitation, fever and SOB Physical Exam Physical Exam: General- No acute distress Head- atraumatic Eyes- PERRL, EOMI, ENT- oropharynx clear Neck- supple, no JVD Lungs- clear to auscultation Heart- regular rhythm; no murmur Abdomen- normal bowel sounds, soft, nontender Extremities- no calf tenderness Neuro- alert, oriented x 3; PERRL, EOMI; no facial palsy; no dysarthria Skin- warm & dry Results & Data ([facility]) Vital Signs (Past 12 Hours) Vital Signs Temp Pulse Pulse Resp BP Pulse Ox 05/30/19 11:41 59 L 05/30/19 07:03 36.6 C 66 20 125/77 93 05/30/19 03:22 36.5 C 66 18 128/76 95
[2019-05-30] MEDS ORDERED: MECLIZINE HCL 25 MG TAB PO PRN (13:18)
[2019-05-31] MEDS ORDERED: LISINOPRIL/HCTZ 20/25MG 1 TAB PO SCH (09:00)
--- NOTE | 2019-06-03 16:51 | Discharge Summary ---
Date of Service May 30, 2019 Admission HPI Per Admitting Provider 49 years old female with past medical history of hypertension, nausea, benign paroxysmal positional vertigo, major depression, general anxiety, insomnia, presented to the ER with chief complaint of dizziness associated with elevated blood pressure. Patient said last night while sitting on the couch she developed chest pain associated with shortness of breath. She said the episodes last for few minutes then she went to sleep. She said when she woke up today she felt a little dizzy. But she said that when she got to work dizziness get worse to the point where she felt like she was going to pass out. Patient said that dizziness occurs whenever she turned her head too fast. She said that she does not have the feeling where the room is spinning around her. She said that her BP was checked that was elevated at 175/107. Patient said that she fell congested with runny nose today. Patient said that she has been feeling very tired with low energy lately. She denies any recent traveling. 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 Currently denies any chest pain, palpitation, fever and shortness of breath. In the ER lab was done showed troponin 0.02, and the ER physician call cardiology.recommend to keep the patient for observation for possible stress test tomorrow. Admission Exam Per Admitting Provider General- No acute distress Head- atraumatic Eyes- PERRL, EOMI, ENT- mild swelling of the turbinate in right nostril, no erythema/pus in the ear canal Neck- supple, no JVD Lungs- clear to auscultation Heart- regular rhythm; no murmur Abdomen- normal bowel sounds, soft, nontender Extremities- no calf tenderness Neuro- alert, oriented x 3; PERRL, EOMI; no facial palsy; no dysarthria Skin- warm & dry Principal Diagnosis Dizziness Chest pain Hypertension Hypokalemia Fatigue Discharge Exam General- No acute distress Head- atraumatic Eyes- PERRL, EOMI, ENT- oropharynx clear Neck- supple, no JVD Lungs- clear to auscultation Heart- regular rhythm; no murmur Abdomen- normal bowel sounds, soft, nontender Extremities- no calf tenderness Neuro- alert, oriented x 3; PERRL, EOMI; no facial palsy; no dysarthria Skin- warm & dry Discharge Data Allergies Allergy/AdvReac Type Severity Reaction Status Date / Time wheat Allergy Verified 05/29/19 12:57 ibuprofen AdvReac Mild NAUSEA AND Verified 05/29/19 12:57 VOMITING Consultations 05/29/19 16:14 ED Decision to Admit Stat 05/30/19 07:00 Consult Cardiology Routine Ordered Studies 05/29/19 12:08 CT head/brain wo con Stat XR chest 2V PA/lateral CLINICAL HISTORY: Chest Pain dyspnea COMPARISON STUDY: 06/01/2018 FINDINGS: The bones soft tissues and hemidiaphragms are normal. The cardiomediastinal silhouette is normal. The lungs are clear. The pulmonary vasculature is normal. IMPRESSION: Negative chest. ACT 112: Negative or not required by law. The above report was generated using voice recognition software. It may contain grammatical, syntax or spelling errors. Electronically signed by: Nayan Catherine M.D. 05/29/2019 12:55 PM Dictated: 05/29/19 1255 Transcribed: 05/29/[address] head/brain wo con CT DOSE: 537.48 mGy.cm HISTORY: Headache basilio TECHNIQUE: Multiaxial CT images of the head were performed without the use of intravenous contrast. A dose lowering technique was utilized adhering to the principles of ALARA. Comparison: 05/03/2017 Findings: The paranasal sinuses and mastoid air cells are clear. The calvarium and skull base are intact. The ventricles and sulci are within normal limits. There is no mass, hematoma, midline shift, or acute infarct. Impression: No acute intracranial abnormality. ACT 112: Negative or not required by law. The above report was generated using voice recognition software. It may contain grammatical, syntax or spelling errors. Electronically signed by: Nayan Catherine M.D. 05/29/2019 12:35 PM Dictated: 05/29/19 1235 Transcribed: 05/29/19 1235 Hospital Course (1) Dizziness: 49 years old female with past medical history of hypertension,nausea, benign paroxysmal positional vertigo, major depression, general anxiety, insomnia, presented to the ER with chief complaint of dizziness associated with elevated blood pressure. Possible related nasal congestion that triggers her Dizziness CT head showed no acute intracranial abnormality Continue Meclizine PRN Fall precaution Stable Chest pain Developed Chest pain last night Pt had a family hx of CAD Troponin on admission 0.021-->0.025 Troponin x3 negative Had a negative stress echo done on 06/02 EKG showed no ischemic changes No arrhythmia on tele monitor Cardio on board Stress ECHO done showed no evidence ischemia ECHO exercise stress echocardiogram. Echo revealed normal LVEF and normal wall motion. OK from cardiology standpoint to discharge home Hypertension Might be related to dizziness and hospital setting BP elevated during exercise stress echo Cardiology recommended to increase Lisinopril/HCTZ latrell 20/25 mg Continue Monitor BP Check BMP in 1 week Hypokalemia Possible related to HCTZ and probably diet related K stable today Will add low dose of K supplement since HCTZ increase to 20mg Check BMP in 1 week Fatigue TSH WNL Advised pt to stay active Obesity BMI 36 Pt is doing a Ketogenic diet Counseling pt about exercise Anxiety /depression Continue Wellbutrin DVT px pt is ambulates Code Status Full code Disposition Discharge home today Total Time Total Time Spent Total Time Spent (In Minutes): 35 minutes Total Time Includes: Examination of the Patient, Discharge Planning, Medication Reconciliation, Communication With Other Providers and Other Discharge Plan Discharge Items Patient Disposition: Home - Self-Care Reason For Visit: DIZZINESS Discharge Diagnosis: Dizziness Chest pain Hypertension Hypokalemia Fatigue Activity: Resume your previous activity Non-emergency contact: Primary Care Provider Call non-emergency contact if: you have any medication questions Follow-up/Referrals: Lilia Contreras PA-C [Primary Care Provider] - Diet: Low Sodium (2gm) Addtl Attending Provider Instructions: Follow up with your primary care provider in 1 week Check BMP in 1 week to monitor your electrolytes and renal function Monitor your blood pressure Seek medical attention if your symptoms worsening Fall precaution Pending Studies at Discharge: No Stand-Alone Forms: [facility], Smoking Cessation Medications and DC Order Prescriptions: New lisinopril-hydrochlorothiazide 20-25 mg tablet 1 tab PO DAILY Qty: 30 RF: 0 potassium chloride 20 mEq tablet extended release 20 meq PO DAILY Qty: 30 RF: 0 meclizine 25 mg Tablet 25 mg PO Q8H PRN (Reason: dizziness) Qty: 30 RF: 0 Continued valacyclovir 500 mg tablet 500 mg PO DIRECTED PRN (Reason: sores) RF: 0 multivitamin [Daily Multi-Vitamin] tablet 1 tab PO QAM RF: 0 metronidazole 0.75 % cream 1 applic topical DIRECTED PRN (Reason: rosacea) Qty: 1 RF: 0 bupropion HCl [Wellbutrin XL] 300 mg tablet extended release 24 hr 300 mg PO QAM RF: 0 minocycline 100 mg capsule 100 mg PO DIRECTED PRN (Reason: rosacea) RF: 0 acetaminophen [Tylenol Extra Strength] 500 mg Tablet 500 mg PO Q6H PRN (Reason: Pain) RF: 0 cholecalciferol (vitamin D3) 1,250 mcg (50,000 unit) capsule 50,000 unit PO WK RF: 0 pantoprazole [Protonix] 20 mg tablet,delayed release (DR/EC) 20 mg PO QAM RF: 0 Discontinued lisinopril-hydrochlorothiazide 20-12.5 mg tablet 1 tab PO QAM RF: 0 Discharge Orders: Discharge Order (Routine); Ordered 05/30/19 Ordered By: Ricardo Chun Admission Data Admit Date/Time: 05/29/19 18:05 Attending Provider: Ricardo Chun Admit Provider: Ricardo Chun Primary Care Provider: Lilia Contreras Other Providers: Ranjan Reed Other Interventions: Discharge Summary Assessment (RN) Last Done: 05/30/19 15:41 DC Date/Time DO NOT enter until pt leaves facility: 05/30/19 16:07
== END 2019-05-30 16:07 | disposition home or self-care (01) ==
LOC: ED 11:58 → 2S 11:58